=== PATIENT | female | born 2000 | race Caucasian/White ===

== ENCOUNTER 2019-06-08 23:15 | Emergency (ER) | payer OTHER, MEDICAID, SELFPAY ==
[2019-06-08 23:17] VITALS: BP 152/72; PULSE 104; RESP 18; TEMP 36.7; O2SAT 100; BMI 48.0
--- NOTE | 2019-06-08 23:39 | ED.GENADULT ---
HPI - General Adult General Chief complaint: Dental/Oral Stated complaint: thinks strep throat temp 100.1 Time Seen by Provider: 06/08/19 23:26 Source: patient Mode of arrival: Ambulatory Limitations: no limitations History of Present Illness HPI narrative: 19-year-old female here for evaluation of which she thinks is strep throat. States this morning she started to have a slight sore throat. It is both sides with the left being worse than right. No problems breathing. Has not had any cough. No chills. No rash. No sinus congestion. No ear pain. Has not tried anything for symptoms prior to arrival. She has had multiple cases of strep throat in the past in this which she was concerned about now. Related Data Home Medications Medication Instructions Recorded Confirmed albuterol sulfate 3 ml INH PRN #0 05/29/12 Allergies Allergy/AdvReac Type Severity Reaction Status Date / Time No Known Drug Allergies Allergy Verified 06/09/19 00:01 Review of Systems Constitutional Constitutional: Denies chills, Reports fever(s), Denies headache(s) and Denies malaise ENT Ears, Nose, Mouth, and Throat: Denies vertigo, Denies dizziness, Denies headache(s), Denies neck pain, Reports sore throat, Denies throat swelling and Denies tongue swelling Cardiovascular Cardiovascular: Denies dyspnea Respiratory Respiratory: Denies dyspnea Musculoskeletal Musculoskeletal: Denies neck pain Integumentary/Breasts Skin/Breast: Denies lesions and Denies rash Neurologic Neurologic: Denies behavioral changes, Denies vertigo, Denies dizziness and Denies headache(s) Psychiatric Psychiatric: Denies behavioral changes Hematologic/Lymphatic Hematologic/Lymphatic: Denies easy bleeding and Denies easy bruising Allergic/Immunologic Allergic/Immunologic: Denies throat swelling and Denies tongue swelling Patient History Medical History Healthy adult (Acute) Social History Smoking Status: Never smoker Smoking Status: Never smoker Substance Use Type: does not use Exam Initial Vital Signs Initial Vital Signs: Vital Signs Temperature 98.0 F 06/08/19 23:17 Pulse Rate 104 H 06/08/19 23:17 Respiratory Rate 18 06/08/19 23:17 Blood Pressure 152/72 H 06/08/19 23:17 Pulse Oximetry 100 06/08/19 23:17 Const General: cooperative, comfortable, well developed and well groomed Limitations: mental status not altered HENMT Head: normal to inspection Ears: TM's normal bilaterally Nose: external nose normal Face and sinus: normal facial exam Mouth: oral mucosae normal Teeth and gingiva: dentition normal Throat: abnormal tonsil bilaterally exudates; no erythema, no peritonsillar masses and no uvular edema Neck Lymphatic: lymphadenopathy (Right-sided submandibular) Resp Effort & Inspection: normal respiratory effort Skin Lesions: no lesions Rashes: no rashes Neuro General: alert and awake Cognition: normal cognition Speech: speech normal Extrem General: normal to inspection and capillary refill normal Course Orders Ordered: ED Orders 06/08/19 23:36 Throat Culture Stat Discontinued Medications Dexamethasone (Decadron) 12 mg PO NOW ONE Stop: 06/08/19 23:49 Last Admin: 06/09/19 00:00 Dose: 12 mg Documented by: EMY Metoclopramide HCl (Reglan) 10 mg IV NOW ONE Stop: 06/09/19 00:01 Last Admin: 06/09/19 00:09 Dose: Not Given Documented by: EMY Vital Signs Vital signs: Vital Signs - 8 hr 06/08/19 23:17 06/09/19 00:09 Temperature 98.0 F 97.7 F Pulse Rate 104 H 89 Respiratory Rate 18 18 Blood Pressure 152/72 H 122/56 L Pulse Oximetry 100 100 Medical Decision Making Lab Data Lab results reviewed: Yes I reviewed the patient's lab results. Labs: Point of Care Testing Rapid Strep A Negative Point of care testing: Point of Care Testing Rapid Strep A Negative MDM Narrative Medical decision making narrative: Patient's rapid strep was negative however she does have exudates and reported fevers and right-sided lymphadenopathy and no cough. I did talk with her about options to include treating with steroids today another topical sore throat preparations and waiting for a throat culture before treating with antibiotics versus going ahead and presumptively treating her today for strep throat despite the negative rapid strep. We discussed the risks and benefits of both to include potentially delaying treatment of an infection verses receiving antibiotics that she did not need. After this discussion the patient opted to wait until the culture resulted. We did inform her that we would contact her for positive results. She was given return precautions and follow-up instructions. She expressed understanding and agreement. Discharge Plan Departure Patient Disposition: Home Clinical Impression: Pharyngitis Qualifiers: Pharyngitis/tonsillitis etiology: unspecified etiology Qualified Code(s): J02.9 - Acute pharyngitis, unspecified Discharge Date/Time: 06/09/19 00:10 Instructions: Sore Throat Activity Restrictions/Additional Instructions: A throat culture was taken this evening. We will wait until this results before treating with any antibiotics. We will contact you for a positive culture into call in a prescription for antibiotics for you. Until then I do recommend washing your hands frequently and covering your mouth. Return to the emergency department for any new or worsening symptoms Prescriptions: No Action albuterol sulfate 2.5 MG/3 ML solution for nebulization 3 ml INH PRN Qty: 0 RF: 0 Referrals: Elias Vanegas MD [Primary Care Provider] -
[2019-06-09] MEDS: dexAMETHasone 4 MG TABLET 12 MG PO
[2019-06-09 00:09] VITALS: BP 122/56; PULSE 89; RESP 18; TEMP 36.5; O2SAT 100
== END 2019-06-09 00:10 | disposition home or self-care (01) ==
PROVIDERS: Emergency Provider Emergency Medicine; Family Provider Pediatrics; PCP Pediatrics
DX: J02.9 Acute pharyngitis, unspecified (principal)
CPT/HCPCS: 87070; 87147; 87880; 99283

== ENCOUNTER → 2021-12-28 10:25 | Outpatient (CLI) | payer OTHER, MEDICAID, SELFPAY ==
[2021-12-28 12:21] LABS: Add Manual Diff / Slide Review NO; Basophils Absolute Auto 0 /uL (0-100); Basophils Percent Auto 0.4 % (0-2); Eosinophils Absolute Auto 100 /uL (0-450); Eosinophils Percent Auto 0.9 % (2-4); Hemoglobin 13.7 g/dL (12.0-16.0); Lymphocytes Absolute Auto 2400 /uL (1100-4500); Lymphocytes Percent Auto 29.3 % (25-40); Mean Corpuscular HGB Conc 33.4 % (30-36); Mean Corpuscular Hemoglobin 28.1 PG (26-34); Monocytes Absolute Auto 500 /uL (0-900); Monocytes Percent Auto 6.1 % (3-14); Neutrophils Absolute Auto 5300 /uL (1500-7000); Neutrophils Percent Auto 63.3 % (50-75); Platelet Count 432 X10^3/uL (150-400); Red Blood Cell Count 4.88 X10^6/uL (4.0-5.2); Red Cell Distribution Width 13.6 % (11.6-14.8); White Blood Cell Count 8.3 X10^3/uL (4.5-11.0)
[2021-12-28 12:48] LABS: Free T3, Triiodothyronine Free 3.47 pg/mL (2.77-5.27); Free T4, Direct Thyroxine 1.24 ng/dL (0.78-2.19)
[2021-12-28 12:50] LABS: Alanine Aminotransferase 17 IU/L (<35); Albumin 4.2 g/dL (3.5-5.0); Albumin Globulin Ratio 1.1 (1.0-2.8); Alkaline Phosphatase 93 U/L (38-126); Aspartate Aminotransferase 22 IU/L (14-36); BUN Creatinine Ratio 14.3 (6-22); Bilirubin Total 0.5 mg/dL (0.2-1.3); Blood Urea Nitrogen 10 mg/dL (7-17); Calcium 8.8 mg/dL (8.4-10.2); Carbon Dioxide 27 mmol/L (22-32); Chloride 102 mmol/L (98-107); Estimated Glomerular Filt Rate > 60 mL/min (>60); Globulin 3.7 g/dL (1.7-4.1); Glucose 95 mg/dL (70-100); HEMOLYSIS < 15 (0-50); Potassium 3.9 mmol/L (3.4-5.1); Sodium 139 mmol/L (137-145); Total Protein 7.9 g/dL (6.3-8.2)
[2021-12-28 13:01] LABS: Thyroid Stimulating Hormone 2.03 uIU/mL (0.47-4.68)
== END ==
PROVIDERS: Family Provider Pediatrics; PCP Nurse Practitioner; Referring Provider Nurse Practitioner; Visit Provider Nurse Practitioner
DX: Z00.00 Encounter for general adult medical examination without abnormal findings (principal)
CPT/HCPCS: 36415; 80053; 84439; 84443; 84481; 85025

== ENCOUNTER → 2022-03-03 08:23 | Outpatient (CLI) | payer OTHER, MEDICAID, SELFPAY ==
[2022-03-03 10:34] LABS: HCG Quantitative /Beta subunit < 2.4 mIU/mL
== END ==
PROVIDERS: Family Provider Pediatrics; PCP Nurse Practitioner; Referring Provider Nurse Practitioner; Visit Provider Nurse Practitioner
DX: N91.2 Amenorrhea, unspecified (principal)
CPT/HCPCS: 36415; 84702

== ENCOUNTER → 2022-09-22 17:11 | Outpatient (CLI) | payer OTHER, MEDICAID, SELFPAY ==
[2022-09-22 18:31] LABS: HCG Quantitative /Beta subunit 16.4 mIU/mL
== END ==
PROVIDERS: Family Medicine; Family Provider Pediatrics; PCP Nurse Practitioner; Referring Provider Nurse Practitioner; Visit Provider Nurse Practitioner
DX: Z34.90 Encounter for supervision of normal pregnancy, unspecified, unspecified trimester (principal)
CPT/HCPCS: 36415; 84702

== ENCOUNTER 2022-09-25 22:19 | Emergency (ER) | payer OTHER, MEDICAID, SELFPAY ==
[2022-09-25 22:24] VITALS: BP 133/85; PULSE 93; RESP 18; TEMP 36.7; O2SAT 99; BMI 54.9
--- NOTE | 2022-09-25 22:43 | ED_ITS ---
HPI - Anxiety General Chief Complaint: Anxiety Stated Complaint: Lightheaded Time Seen by Provider: 09/25/22 22:31 Source: patient Mode of arrival: Ambulatory History of Present Illness HPI narrative: 22-year-old female nonsmoker without chronic medical history presents with a chief complaint of feeling anxious and a bit lightheaded. She states she frequently feels this way in typically can employed breathing techniques at home which help but she is struggling today. Her dizziness seems to come and go and is not obviously affected by change in position, standing or other obvious provocation. She does state that she found out earlier in the week that she is for the 1st time which she is sure is contributing to her symptoms. Related Data Previous Rx's Medication Instructions Recorded fluconazole 150 mg tablet 150 mg PO Q3D 2 doses #2 tabs 09/15/22 nystatin 100,000 unit/gram topical 1 applic topical BID #30 grams 09/15/22 powder Allergies Allergy/AdvReac Type Severity Reaction Status Date / Time No Known Drug Allergies Allergy Verified 09/15/22 09:08 Review of Systems Review of Systems Narrative: GENERAL: See HPI HEENT: Denies sinus pain, ear pain, sore throat, difficulty swallowing, dizziness. RESPIRATORY: Denies dyspnea, cough, wheezing, hemoptysis, sputum. CARDIOVASCULAR: Denies chest pain, palpitations, orthopnea, edema, GASTROINTESTINAL: See HPI : Denies dysuria, frequency, incontinence, hematuria, urinary retention. MUSCULOSKELETAL: denies weakness, joint pain, or bony pain SKIN: Denies rash, skin lesions, or other NEUROLOGIC: Denies weakness, headache, numbness, change in speech, confusion, seizures, incoordination. PSYCHIATRIC: No concerning psychosocial issues. 12 point review of systems is negative except for those stated above Patient History Medical History Asthma Bipolar disorder (~2021) Depression (~2012) Healthy adult PTSD (post-traumatic stress disorder) (~2012) Family History Father Mental health disorder Mother Mental health disorder Diabetes mellitus Social History Smoking Status: Never smoker Smoking Status: Never smoker Substance Use Type: does not use Exam Narrative Exam Narrative: GENERAL: [22] year old patient appears stated age. Well-developed patient, in mild distress. HEAD: Atraumatic. Normocephalic. EYES: Pupils equal round and reactive. Extraocular motions intact. No scleral icterus. No injection or drainage. ENT: Nose without bleeding, purulent drainage. Throat without erythema, tonsillar hypertrophy or exudate. Airway patent. NECK: Trachea midline. Non tender CARDIOVASCULAR: Regular rate and rhythm without murmurs, gallops, or rubs. RESPIRATORY: Clear to auscultation. Breath sounds equal bilaterally. No wheezes, rales, or rhonchi. GASTROINTESTINAL: Abdomen soft, non-tender, nondistended. EXTREMITIES: No edema or joint tenderness. BACK: Nontender without deformity or crepitance. No flank tenderness. NEURO: AOx3. SKIN: No rash or erythema of visible areas Initial Vital Signs Initial Vital Signs: Vital Signs Temperature 98.1 F 09/25/22 22:24 Pulse Rate 93 H 09/25/22 22:24 Respiratory Rate 18 09/25/22 22:24 Blood Pressure 133/85 09/25/22 22:24 Pulse Oximetry 99 09/25/22 22:24 Oxygen Delivery Method Room Air 09/25/22 22:24 Course Orders Ordered: ED Orders 09/25/22 23:00 ABO RH Type Stat Complete Blood Count AUTO DIFF Stat Comprehensive Metabolic Panel Stat HCG Quantitative /Beta subunit Stat Magnesium Stat TSH [Thyroid Stimulating Hormone] Stat Discontinued Medications Sodium Chloride (Normal Saline 0.9%) 1,000 mls @ 1,000 mls/hr IV BOLUS ONE Stop: 09/26/22 00:35 Last Admin: 09/26/22 00:10 Dose: 1,000 mls/hr Documented By: DUNG Ondansetron HCl (Ondansetron 4 Mg/2 Ml Inj) 4 mg IV NOW ONE Stop: 09/25/22 23:37 Last Admin: 09/26/22 00:09 Dose: 4 mg Documented By: DUNG Vital Signs Vital signs: Vital Signs - 8 hr 09/25/22 22:24 09/26/22 00:02 09/25/22 23:54 Temperature 98.1 F Pulse Rate 93 H 64 Respiratory Rate 18 16 Blood Pressure 133/85 104/52 L Pulse Oximetry 99 98 Oxygen Delivery Method Room Air Room Air 09/25/22 23:55 09/25/22 23:55 09/25/22 23:56 Temperature Pulse Rate 94 H Respiratory Rate Blood Pressure 95/48 L 104/52 L Pulse Oximetry 98 Oxygen Delivery Method 09/25/22 23:56 Temperature Pulse Rate 86 Respiratory Rate Blood Pressure Pulse Oximetry 99 Oxygen Delivery Method MDM - Anxiety Lab Data 09/25/22 23:00 09/25/22 23:00 Labs: Lab Results 09/25/22 09/25/22 09/25/22 Range/Units 23:00 23:00 23:00 WBC 10.4 (4.5-11.0) X10^3/uL RBC 4.58 (4.0-5.2) X10^6/uL Hgb 13.1 (12.0-16.0) g/dL Hct 38.4 (36-46) % MCV 83.9 (80-100) fL MCH 28.6 (26-34) PG MCHC 34.0 (30-36) % RDW 14.4 (11.6-14.8) % Plt Count 405 H (150-400) X10^3/uL Neut % (Auto) 57.5 (50-75) % Lymph % (Auto) 34.0 (25-40) % [place] % (Auto) 6.8 (3-14) % Eos % (Auto) 1.2 L (2-4) % Baso % (Auto) 0.5 (0-2) % Neut # (Auto) 6000 (1889-3666) /uL Lymph # (Auto) 3500 (6562-1673) /uL [place] # (Auto) 700 (0-900) /uL Eos # (Auto) 100 (0-450) /uL Baso # (Auto) 100 (0-100) /uL Sodium 136 L (137-145) mmol/L Potassium 3.7 (3.4-5.1) mmol/L Chloride 104 (98-107) mmol/L Carbon Dioxide 28 (22-32) mmol/L BUN 9 (7-17) mg/dL Creatinine 0.72 (0.52-1.04) mg/dL Estimated GFR > 60 (>60) mL/min BUN/Creatinine Ratio 12.5 (6-22) Glucose 102 H (70-100) mg/dL Calcium 8.6 (8.4-10.2) mg/dL Magnesium 1.9 (1.6-2.3) mg/dL Total Bilirubin 0.5 (0.2-1.3) mg/dL AST 20 (14-36) IU/L ALT 16 (<35) IU/L Alkaline Phosphatase 89 (38-126) U/L Total Protein 7.4 (6.3-8.2) g/dL Albumin 3.8 (3.5-5.0) g/dL Globulin 3.6 (1.7-4.1) g/dL Albumin/Globulin Ratio 1.1 (1.0-2.8) TSH 3.17 (0.47-4.68) uIU/mL HCG, Quant 96.7 mIU/mL Blood Type 09/25/22 Range/Units 23:00 WBC (4.5-11.0) X10^3/uL RBC (4.0-5.2) X10^6/uL Hgb (12.0-16.0) g/dL Hct (36-46) % MCV (80-100) fL MCH (26-34) PG MCHC (30-36) % RDW (11.6-14.8) % Plt Count (150-400) X10^3/uL Neut % (Auto) (50-75) % Lymph % (Auto) (25-40) % [place] % (Auto) (3-14) % Eos % (Auto) (2-4) % Baso % (Auto) (0-2) % Neut # (Auto) (2489-4158) /uL Lymph # (Auto) (3651-5273) /uL [place] # (Auto) (0-900) /uL Eos # (Auto) (0-450) /uL Baso # (Auto) (0-100) /uL Sodium (137-145) mmol/L Potassium (3.4-5.1) mmol/L Chloride (98-107) mmol/L Carbon Dioxide (22-32) mmol/L BUN (7-17) mg/dL Creatinine (0.52-1.04) mg/dL Estimated GFR (>60) mL/min BUN/Creatinine Ratio (6-22) Glucose (70-100) mg/dL Calcium (8.4-10.2) mg/dL Magnesium (1.6-2.3) mg/dL Total Bilirubin (0.2-1.3) mg/dL AST (14-36) IU/L ALT (<35) IU/L Alkaline Phosphatase (38-126) U/L Total Protein (6.3-8.2) g/dL Albumin (3.5-5.0) g/dL Globulin (1.7-4.1) g/dL Albumin/Globulin Ratio (1.0-2.8) TSH (0.47-4.68) uIU/mL HCG, Quant mIU/mL Blood Type O Negative Point of Care Testing Test Results Negative Urine Dip Bedside Urine Glucose Negative Bedside Urine Bilirubin - Negative Bedside Urine Ketone - Negative Urine Specific [place] 1.010 Bedside Urine Occult Blood - Negative Bedside Urine pH 6.0 Bedside Urine Protein - Negative Bedside Urine Urobilinogen - Negative Bedside Urine Nitrite - Negative Bedside Urine Leukocytes - Negative Esterase MDM Narrative Medical decision making narrative: [22] year old patient presents with feeling anxious and a bit lightheaded Multiple etiologies for patient's symptoms considered including, but not limited to: [Dehydration, electrolyte abnormality, anxiety versus other] Prior Charts reviewed in our EMR Primary Historian: patient Labs reviewed and interpreted by myself: No significant lab abnormalities, O negative Patient's symptoms improved over duration of stay with above-stated therapies. Findings and discharge diagnosis discussed with patient/family followed by verb alization of understanding Return precautions discussed with patient/family whom verbalize understanding of diagnosis and plan Discharge Plan Departure Patient Disposition: Home Clinical Impression: Intermittent lightheadedness, Activity Restrictions/Additional Instructions: *You have been diagnosed with [lightheadedness and early .] *What to do: *Please continue to take your regular medications as directed. *Please follow up with your primary care provider in 2-3 days, call for an appointment. Let them know you were seen in the Emergency Department and that we ask that you be seen in follow up. We will electronically transmit a record of today's note if your PCP is in our system *If you do not have a primary care provider please contact the [facility] Resource line at [phone]. They will ask some questions about your medical history and help get you set up with a doctor in the community. *Return to Emergency Department if you should have any new, worsening or concerning symptoms, such as [fever greater than 101 F, shaking chills, wor sening pain, persistent vomiting or other bothersome symptoms] Prescriptions: No Action nystatin 100,000 unit/gram powder 1 applic topical BID Qty: 30 2RF Rx Instructions: Apply to affected area in folds of skin twice daily until resolved fluconazole 150 mg tablet 150 mg PO Q3D Qty: 2 0RF Rx Instructions: Take 1 tab by mouth every 3 days x2 doses for yeast infection in folds of skin Referrals: Lilo Fink ARNP [Primary Care Provider] - Christiane Trevino MD [Physician] - Stand Alone Forms: Patient Portal/API
[2022-09-25 23:14] LABS: Add Manual Diff / Slide Review NO; Basophils Absolute Auto 100 /uL (0-100); Basophils Percent Auto 0.5 % (0-2); Eosinophils Absolute Auto 100 /uL (0-450); Eosinophils Percent Auto 1.2 % (2-4); Hematocrit 38.4 % (36-46); Hemoglobin 13.1 g/dL (12.0-16.0); Lymphocytes Absolute Auto 3500 /uL (1100-4500); Mean Corpuscular Hemoglobin 28.6 PG (26-34); Mean Corpuscular Volume 83.9 fL (80-100); Monocytes Absolute Auto 700 /uL (0-900); Monocytes Percent Auto 6.8 % (3-14); Neutrophils Absolute Auto 6000 /uL (1500-7000); Neutrophils Percent Auto 57.5 % (50-75); Platelet Count 405 X10^3/uL (150-400); Red Blood Cell Count 4.58 X10^6/uL (4.0-5.2); Red Cell Distribution Width 14.4 % (11.6-14.8); White Blood Cell Count 10.4 X10^3/uL (4.5-11.0)
[2022-09-25 23:25] LABS: Alanine Aminotransferase 16 IU/L (<35); Albumin 3.8 g/dL (3.5-5.0); Albumin Globulin Ratio 1.1 (1.0-2.8); Alkaline Phosphatase 89 U/L (38-126); Aspartate Aminotransferase 20 IU/L (14-36); BUN Creatinine Ratio 12.5 (6-22); Bilirubin Total 0.5 mg/dL (0.2-1.3); Blood Urea Nitrogen 9 mg/dL (7-17); Calcium 8.6 mg/dL (8.4-10.2); Carbon Dioxide 28 mmol/L (22-32); Chloride 104 mmol/L (98-107); Estimated Glomerular Filt Rate > 60 mL/min (>60); Globulin 3.6 g/dL (1.7-4.1); Glucose 102 mg/dL (70-100); HEMOLYSIS < 15 (0-50); Magnesium 1.9 mg/dL (1.6-2.3); Potassium 3.7 mmol/L (3.4-5.1); Sodium 136 mmol/L (137-145); Total Protein 7.4 g/dL (6.3-8.2)
[2022-09-25 23:42] LABS: HCG Quantitative /Beta subunit 96.7 mIU/mL
[2022-09-25 23:54] VITALS: O2SAT 98
[2022-09-25 23:55] VITALS: BP 95/48; PULSE 94; O2SAT 98
[2022-09-25 23:56] VITALS: BP 104/52; PULSE 86; O2SAT 99
[2022-09-26 00:02] VITALS: BP 104/52; PULSE 64; RESP 16
[2022-09-26] MEDS: ONDANSETRON 4 MG/2 ML INJ IV (00:09)
[2022-09-26] MEDS: SODIUM CHLORIDE 0.9% 1,000 ML 1000 ML IV (00:10)
[2022-09-26 00:13] LABS: Thyroid Stimulating Hormone 3.17 uIU/mL (0.47-4.68)
== END 2022-09-26 00:52 | disposition home or self-care (01) ==
PROVIDERS: Emergency Provider Emergency Medicine; Family Provider Pediatrics; PCP Nurse Practitioner
DX: R42 Dizziness and giddiness (principal); Z3A.01 Less than 8 weeks gestation of pregnancy
CPT/HCPCS: 36415; 80053; 81003; 81025; 83735; 84443; 84702; 85025; 86900; 86901; 96361; 96374; 99284; J2405

== ENCOUNTER → 2022-10-03 15:32 | Outpatient (CLI) | payer OTHER, MEDICAID, SELFPAY ==
[2022-10-03 17:26] LABS: HCG Quantitative /Beta subunit 2917.9 mIU/mL
== END ==
PROVIDERS: Family Provider Pediatrics; PCP Nurse Practitioner; Referring Provider Family Medicine; Visit Provider Family Medicine
DX: Z32.01 Encounter for pregnancy test, result positive (principal)
CPT/HCPCS: 36415; 84702

== ENCOUNTER → 2022-11-09 12:44 | Outpatient (CLI) | payer OTHER, MEDICAID, SELFPAY ==
[2022-11-09 20:47] LABS: Appearance Urine UA CLEAR; Bilirubin Urine UA NEGATIVE (NEGATIVE); Color Urine UA YELLOW; Glucose Urine UA NEGATIVE (Negative); Ketones Urine UA NEGATIVE (NEGATIVE); Leukocyte Esterase Urine UA 1+ (NEGATIVE); Nitrite Urine UA NEGATIVE (Negative); Occult Blood Urine UA NEGATIVE (Negative); Protein Urine UA NEGATIVE (Negative); Specific Gravity Urine UA <=1.005 (1.000-1.035); Urobilinogen Urine UA 0.2 E.U./dL (0.2)
[2022-11-09 21:12] LABS: Bacteria Urine Occasional (0-1); RBC Urine 0-1/HPF (0-5/HPF); Squamous Epithelial Cell Urine 5-10 /HPF (0-5/HPF); Transitional Epi Cells Urine 1-5/HPF (0-5/HPF); WBC Urine 5-10/HPF (0-5/HPF); pH Urine UA 6.5 (4.5-8.0)
== END ==
PROVIDERS: Family Provider Pediatrics; PCP Nurse Practitioner; Visit Provider Family Medicine
DX: Z34.81 Encounter for supervision of other normal pregnancy, first trimester (principal)
CPT/HCPCS: 81003; 81015; 87086

== ENCOUNTER → 2022-11-09 13:11 | Outpatient (CLI) | payer OTHER, MEDICAID, SELFPAY ==
[2022-11-09 14:23] LABS: Add Manual Diff / Slide Review NO; Basophils Absolute Auto 0 /uL (0-100); Basophils Percent Auto 0.2 % (0-2); Eosinophils Absolute Auto 0 /uL (0-450); Eosinophils Percent Auto 0.3 % (2-4); Hematocrit 37.4 % (36-46); Hemoglobin 12.8 g/dL (12.0-16.0); Lymphocytes Absolute Auto 1900 /uL (1100-4500); Lymphocytes Percent Auto 20.9 % (25-40); Mean Corpuscular HGB Conc 34.2 % (30-36); Mean Corpuscular Hemoglobin 28.8 PG (26-34); Mean Corpuscular Volume 84.3 fL (80-100); Monocytes Absolute Auto 500 /uL (0-900); Monocytes Percent Auto 5.8 % (3-14); Neutrophils Absolute Auto 6600 /uL (1500-7000); Neutrophils Percent Auto 72.8 % (50-75); Platelet Count 373 X10^3/uL (150-400); Red Blood Cell Count 4.44 X10^6/uL (4.0-5.2); Red Cell Distribution Width 14.1 % (11.6-14.8)
[2022-11-10 03:45] LABS: RPR Screen Non Reactive (Non Reactive)
[2022-11-10 15:55] LABS: Hepatitis B Surface Antigen NEGATIVE s/c (NEGATIVE); Rubella Antibody IgG 18.4 IU/mL (>15)
[2022-11-10 16:19] LABS: HIV 1 & 2 Ab/Ag 4th Gen Combo NEGATIVE (NEGATIVE); Hep C Virus Ab w/Reflex Quant NEGATIVE s/c (NEGATIVE)
[2022-11-11 09:42] LABS: Varicella IgG Antibody 206 index (Immune >165)
== END ==
PROVIDERS: Family Provider Pediatrics; PCP Nurse Practitioner; Referring Provider Family Medicine; Visit Provider Family Medicine
DX: Z34.81 Encounter for supervision of other normal pregnancy, first trimester (principal)
CPT/HCPCS: 36415; 80055; 81003; 81015; 86787; 86803; 86850; 86900; 86901; 87086; 87389

== ENCOUNTER 2022-11-25 23:33 | Emergency (ER) | payer OTHER, MEDICAID, SELFPAY ==
[2022-11-25 23:37] VITALS: BP 145/93; PULSE 134; RESP 20; TEMP 37.1; O2SAT 97; BMI 52.8
--- NOTE | 2022-11-25 23:49 | ED_ITS ---
HPI - General Adult General Chief complaint: OB/Uterine Contractions Stated complaint: POSSIBLE Miscarriage Time Seen by Provider: 11/25/22 23:37 Source: patient Mode of arrival: Ambulatory Limitations: no limitations History of Present Illness HPI narrative: Patient is a at approximately 13 weeks EGA who is here for evaluation of vaginal bleeding. She states the symptoms started this evening. She did pass quite a bit of clots and potentially some tissue. No vomiting. No fevers. No trauma. She is Rh negative. She has had her initial OB appointment. No urinary symptoms. Related Data Home Medications Medication Instructions Recorded Confirmed [id number] 400 mcg-om3 35 mg-dha 25 tab PO 10/06/22 11/09/22 mg-epa 5 mg-fish oil chewable tablet Previous Rx's Medication Instructions Recorded ondansetron 4 mg disintegrating 4 mg PO Q8H PRN nausea and 11/23/22 tablet vomiting #20 tabs Allergies Allergy/AdvReac Type Severity Reaction Status Date / Time No Known Drug Allergies Allergy Verified 11/09/22 12:03 Review of Systems Constitutional Constitutional: Reports system reviewed and no additional complaints, except as documented Gastrointestinal Gastrointestinal: Reports system reviewed and no additional complaints, except as documented Genitourinary Genitourinary: Reports system reviewed and no additional complaints, except as documented Hematologic/Lymphatic On Anticoagulants: No Patient History Medical History PTSD (post-traumatic stress disorder) (~2012) Depression (~2012) Bipolar disorder (~2021) Asthma Healthy adult Surgical History (Updated 10/06/22 @ 13:13 by Lissy Bishop RN) No pertinent past surgical history Family History (Updated 10/06/22 @ 13:17 by Lissy Bishop RN) Father Depression Anxiety PTSD (post-traumatic stress disorder) Mother Mental health disorder Diabetes mellitus Anxiety Depression Bipolar disorder PIH ( induced hypertension) Grandmother Breast cancer Social History marital status: number of children: 0 household members: spouse and family (grandfather) lives independently: Yes caregiver/support person: No housing: house (manufactured home) pets and animals: Yes (grandfather's cat, she doesn't deal w/ litter box) education level: college (student) 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) special sylvain needs: No travel history: recent seatbelt use: always water heater temp set < 120 deg: Yes working smoke detector in home: Yes fire extinguisher in home: Yes carbon monox detector in home: Yes firearms in home: Yes firearms unloaded and locked: Yes do you feel safe at home: Yes (answered w/ present ) Smoking Status: Never smoker second hand exposure: No alcohol intake: former (occasionally when not ) substance use type: does not use during the past year weight has: remained stable well-balanced diet: rarely or never daily servings fruits/ve-1 caffeine: Yes (aware of 200mg limit) Type(s) of exercise: walking duration: 15-30 minutes/day Smoking Status: Never smoker Substance Use Type: does not use Exam Initial Vital Signs Initial Vital Signs: Vital Signs Temperature 98.7 F 11/25/22 23:37 Pulse Rate 134 H 11/25/22 23:37 Respiratory Rate 20 11/25/22 23:37 Blood Pressure 145/93 H 11/25/22 23:37 Pulse Oximetry 97 11/25/22 23:37 Oxygen Delivery Method Room Air 11/25/22 23:37 HENMT Head: normal to inspection and normocephalic Resp Effort & Inspection: normal respiratory effort Cardio Rate: regular rate GI Inspection: non-distended Skin General: no rashes or lesions noted Neuro General: patient alert, patient awake and moves all extremities Extrem General: capillary refill normal Course Orders Ordered: ED Orders 11/25/22 23:45 Basic Metabolic Panel Stat Complete Blood Count AUTO DIFF Stat HCG Quantitative /Beta subunit Stat 11/26/22 00:00 OB <= 14 weeks fetus Stat Discontinued Medications Rho Immune Globulin (Rho(D) Immune Globulin 1,500 Unit Syringe) 1,500 unit IM NOW ONE Stop: 11/25/22 23:48 Last Admin: 11/26/22 00:49 Dose: 1,500 unit Documented By: TRINY Vital Signs Vital signs: Vital Signs - 8 hr 11/25/22 23:37 11/26/22 00:24 Temperature 98.7 F Pulse Rate 134 H 89 Respiratory Rate 20 16 Blood Pressure 145/93 H Pulse Oximetry 97 98 Oxygen Delivery Method Room Air Room Air Medical Decision Making Medical Records Medical records reviewed: Yes I reviewed the patient's medical records. Lab Data Lab results reviewed: Yes I reviewed the patient's lab results. 11/25/22 23:45 11/25/22 23:45 Labs: Lab Results 11/25/22 Range/Units 23:45 WBC 11.2 H (4.5-11.0) X10^3/uL RBC 4.50 (4.0-5.2) X10^6/uL Hgb 13.1 (12.0-16.0) g/dL Hct 38.2 (36-46) % MCV 84.9 (80-100) fL MCH 29.1 (26-34) PG MCHC 34.2 (30-36) % RDW 14.5 (11.6-14.8) % Plt Count 358 (150-400) X10^3/uL Neut % (Auto) 60.9 (50-75) % Lymph % (Auto) 31.8 (25-40) % [place] % (Auto) 6.2 (3-14) % Eos % (Auto) 0.9 L (2-4) % Baso % (Auto) 0.2 (0-2) % Neut # (Auto) 6800 (3734-4342) /uL Lymph # (Auto) 3500 (7965-2136) /uL [place] # (Auto) 700 (0-900) /uL Eos # (Auto) 100 (0-450) /uL Baso # (Auto) 0 (0-100) /uL Sodium 134 L (137-145) mmol/L Potassium 3.6 (3.4-5.1) mmol/L Chloride 104 (98-107) mmol/L Carbon Dioxide 23 (22-32) mmol/L BUN 4 L (7-17) mg/dL Creatinine 0.51 L (0.52-1.04) mg/dL Estimated GFR > 60 (>60) mL/min BUN/Creatinine Ratio 7.8 (6-22) Glucose 108 H (70-100) mg/dL Calcium 9.6 (8.4-10.2) mg/dL HCG, Quant 87946 mIU/mL Imaging Data US - OB: Radiologist's Impression: PROCEDURE: US OB <= 14 WEEKS FETUS INDICATIONS: BLEEDING OUTSIDE/PRIOR DATING DATA: Last menstrual period (LMP): 08/28/2022 LMP-based estimated date of delivery (GURPREET): 06/04/2023 First dating scan (date and location): 11/09/2022 Estimated date of delivery (GURPREET) from first dating scan: 06/04/2023 TECHNIQUE: Real-time scanning was performed of the fetus and maternal pelvic organs, with image documentation. COMPARISON: None. FINDINGS: Embryo: Single intrauterine gestational sac is seen with fetus noted. [place]- rump length measures 7.1 cm. Estimated gestational age is 13 weeks, 2 days. Heart rate: 157 beats per minute. No perigestational hematoma is seen. Maternal organs: Ovaries are not well seen on this study. No gross adnexal mass. IMPRESSION: 1. Single live intrauterine gestation with fetus seen. heart rate is 157 beats per minute. Normal growth. 2. No evidence of perigestational hemorrhage. We strive to produce accurate, complete, and clear reports of imaging services. To assist us in improving patient care, this report was composed using standard report templates and voice recognition software. Therefore, it may contain abnormal punctuation, insertions and/or omissions. Occasional wrong-word or sound-alike substitutions may occur. Though we review the report and make efforts to correct it, we do recommend that the report be read carefully in proper context to recognize any text inaccuracies. MDM Narrative Medical decision making narrative: Patient is Rh negative so she was given RhoGAM. Vital signs initially were tachycardic with this improved without specific intervention here in the ER. Patient has not been hypotensive. Her H&H is unremarkable. Ultrasound shows single live intrauterine . I did discuss all this with her. She has an appointment scheduled with her OB provider in just over 1 week. We discussed specific return precautions. Advised she contact her OB provider on Monday for follow-up. She expressed understanding and agreement with plan. Discharge Plan Departure Patient Disposition: Home Clinical Impression: Threatened miscarriage Instructions: Threatened Miscarriage Activity Restrictions/Additional Instructions: I recommend that on Monday you contact your primary OB provider for follow-up. Continue to take your vitamins. Return to the emergency department for new or worsening symptoms. Prescriptions: No Action ondansetron 4 mg tablet,disintegrating 4 mg PO Q8H PRN (Reason: nausea and vomiting) Qty: 20 0RF Rx Instructions: Take one tab every 8 hours as needed only for nausea and vomiting [id number] oil 400 mcg-35 mg -25 mg-5 mg tablet,chewable PO Referrals: Lilo Fink ARNP [Primary Care Provider] - Stand Alone Forms: Patient Portal/API
[2022-11-25 23:58] LABS: Add Manual Diff / Slide Review NO; Basophils Absolute Auto 0 /uL (0-100); Basophils Percent Auto 0.2 % (0-2); Eosinophils Absolute Auto 100 /uL (0-450); Eosinophils Percent Auto 0.9 % (2-4); Hematocrit 38.2 % (36-46); Hemoglobin 13.1 g/dL (12.0-16.0); Lymphocytes Absolute Auto 3500 /uL (1100-4500); Lymphocytes Percent Auto 31.8 % (25-40); Mean Corpuscular HGB Conc 34.2 % (30-36); Mean Corpuscular Hemoglobin 29.1 PG (26-34); Mean Corpuscular Volume 84.9 fL (80-100); Monocytes Absolute Auto 700 /uL (0-900); Monocytes Percent Auto 6.2 % (3-14); Neutrophils Absolute Auto 6800 /uL (1500-7000); Neutrophils Percent Auto 60.9 % (50-75); Platelet Count 358 X10^3/uL (150-400); Red Cell Distribution Width 14.5 % (11.6-14.8); White Blood Cell Count 11.2 X10^3/uL (4.5-11.0)
--- NOTE | 2022-11-26 | DI.US.S_ITS ---
PROCEDURE: US OB <= 14 WEEKS FETUS INDICATIONS: BLEEDING OUTSIDE/PRIOR DATING DATA: Last menstrual period (LMP): 08/28/2022 LMP-based estimated date of delivery (GURPREET): 06/04/2023 First dating scan (date and location): 11/09/2022 Estimated date of delivery (GURPREET) from first dating scan: 06/04/2023 TECHNIQUE: Real-time scanning was performed of the fetus and maternal pelvic organs, with image documentation. COMPARISON: None. FINDINGS: Embryo: Single intrauterine gestational sac is seen with fetus noted. [place]-rump length measures 7.1 cm. Estimated gestational age is 13 weeks, 2 days. Heart rate: 157 beats per minute. No perigestational hematoma is seen. Maternal organs: Ovaries are not well seen on this study. No gross adnexal mass. IMPRESSION: 1. Single live intrauterine gestation with fetus seen. heart rate is 157 beats per minute. Normal growth. 2. No evidence of perigestational hemorrhage. We strive to produce accurate, complete, and clear reports of imaging services. To assist us in improving patient care, this report was composed using standard report templates and voice recognition software. Therefore, it may contain abnormal punctuation, insertions and/or omissions. Occasional wrong-word or sound-alike substitutions may occur. Though we review the report and make efforts to correct it, we do recommend that the report be read carefully in proper context to recognize any text inaccuracies. Dictated by: Milton Peace M.D. on 11/26/2022 at 0:51 Approved by: Milton Peace M.D. on 11/26/2022 at 0:53
[2022-11-26 00:23] VITALS: PULSE 68; O2SAT 98
[2022-11-26 00:24] VITALS: PULSE 89; RESP 16; O2SAT 98
[2022-11-26 00:27] LABS: BUN Creatinine Ratio 7.8 (6-22); Blood Urea Nitrogen 4 mg/dL (7-17); Calcium 9.6 mg/dL (8.4-10.2); Carbon Dioxide 23 mmol/L (22-32); Chloride 104 mmol/L (98-107); Estimated Glomerular Filt Rate > 60 mL/min (>60); Glucose 108 mg/dL (70-100); HEMOLYSIS < 15 (0-50); Potassium 3.6 mmol/L (3.4-5.1); Sodium 134 mmol/L (137-145)
[2022-11-26 00:30] VITALS: PULSE 75; O2SAT 100
[2022-11-26 00:46] LABS: HCG Quantitative /Beta subunit 86797 mIU/mL
[2022-11-26] MEDS: RHO(D) IMMUNE GLOBULIN 1,500 UNIT SYRINGE 1500 UNIT IM (00:49)
[2022-11-26 01:06] VITALS: BP 151/65; PULSE 91; O2SAT 98
== END 2022-11-26 01:23 | disposition home or self-care (01) ==
PROVIDERS: Emergency Provider Emergency Medicine; Family Provider Pediatrics; PCP Nurse Practitioner
DX: O20.0 Threatened abortion (principal); Z3A.13 13 weeks gestation of pregnancy
CPT/HCPCS: 36415; 76801; 80048; 84702; 85025; 96372; 99283; 99284; J2790

== ENCOUNTER 2022-11-30 00:20 | Emergency (ER) | payer OTHER, MEDICAID, SELFPAY ==
--- NOTE | 2022-11-30 00:24 | ED_ITS ---
HPI - General Adult General Chief complaint: Vaginal Bleeding Stated complaint: heavy vaginal bleeding passed 2 blood clots Time Seen by Provider: 11/30/22 00:24 History of Present Illness HPI narrative: 22-year-old female is a at about 13 weeks and presents for the 2nd time in the past few days with a chief complaint of lower pelvic and low back cramping and vaginal bleeding. She was seen and evaluated here on Monday and had the passage of a few large clots and possibly some tissue. She had an extensive and thorough evaluation and was found to have stable labs, reassuring ultrasound, RhoGAM was administered and appropriate discharge given. She was in her normal state of health until this evening when she started having some cramping and passed to clots prior to her arrival. Per her return instructions she is here for evaluation. She denies any dizziness, weakness or lightheadedness. She has no chest pain or shortness of breath. She denies any fever or chills. Related Data Home Medications Medication Instructions Recorded Confirmed [id number] 400 mcg-om3 35 mg-dha 25 tab PO 10/06/22 11/09/22 mg-epa 5 mg-fish oil chewable tablet Previous Rx's Medication Instructions Recorded ondansetron 4 mg disintegrating 4 mg PO Q8H PRN nausea and 11/23/22 tablet vomiting #20 tabs Allergies Allergy/AdvReac Type Severity Reaction Status Date / Time No Known Drug Allergies Allergy Verified 11/09/22 12:03 Review of Systems Review of Systems Narrative: GENERAL: Denies chills, fatigue, malaise, fever, sweats. HEENT: Denies sinus pain, ear pain, sore throat, difficulty swallowing, dizziness. RESPIRATORY: Denies dyspnea, cough, wheezing, hemoptysis, sputum. CARDIOVASCULAR: Denies chest pain, palpitations, orthopnea, edema, GASTROINTESTINAL: Denies nausea, vomiting, abdominal pain, diarrhea, constipation, melena. : See HPI MUSCULOSKELETAL: denies weakness, joint pain, or bony pain SKIN: Denies rash, skin lesions, or other NEUROLOGIC: Denies weakness, headache, numbness, change in speech, confusion, seizures, incoordination. PSYCHIATRIC: No concerning psychosocial issues. 12 point review of systems is negative except for those stated above Patient History Medical History PTSD (post-traumatic stress disorder) (~2012) Depression (~2012) Bipolar disorder (~2021) Asthma Healthy adult Surgical History No pertinent past surgical history Family History Father Depression Anxiety PTSD (post-traumatic stress disorder) Mother Mental health disorder Diabetes mellitus Anxiety Depression Bipolar disorder PIH ( induced hypertension) Grandmother Breast cancer Social History marital status: number of children: 0 household members: spouse and family (grandfather) lives independently: Yes caregiver/support person: No housing: house (manufactured home) pets and animals: Yes (grandfather's cat, she doesn't deal w/ litter box) education level: college (student) 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) special sylvain needs: No travel history: recent seatbelt use: always water heater temp set < 120 deg: Yes working smoke detector in home: Yes fire extinguisher in home: Yes carbon monox detector in home: Yes firearms in home: Yes firearms unloaded and locked: Yes do you feel safe at home: Yes (answered w/ present ) Smoking Status: Never smoker second hand exposure: No alcohol intake: former (occasionally when not ) substance use type: does not use during the past year weight has: remained stable well-balanced diet: rarely or never daily servings fruits/ve-1 caffeine: Yes (aware of 200mg limit) Type(s) of exercise: walking duration: 15-30 minutes/day Smoking Status: Never smoker Substance Use Type: does not use Exam Narrative Exam Narrative: GENERAL: [22] year old patient appears stated age. Well-developed patient, in mild distress. HEAD: Atraumatic. Normocephalic. EYES: Pupils equal round and reactive. Extraocular motions intact. No scleral icterus. No injection or drainage. ENT: Nose without bleeding, purulent drainage. Throat without erythema, tonsillar hypertrophy or exudate. Airway patent. NECK: Trachea midline. Non tender CARDIOVASCULAR: Regular rate and rhythm without murmurs, gallops, or rubs. RESPIRATORY: Clear to auscultation. Breath sounds equal bilaterally. No wheezes, rales, or rhonchi. GASTROINTESTINAL: Abdomen soft, non-tender, nondistended. EXTREMITIES: No edema or joint tenderness. BACK: Nontender without deformity or crepitance. No flank tenderness. NEURO: AOx3. SKIN: No rash or erythema of visible areas Initial Vital Signs Initial Vital Signs: Vital Signs Pulse Rate 103 H 11/30/22 00:30 Respiratory Rate 18 11/30/22 00:30 Blood Pressure 158/88 H 11/30/22 00:30 Pulse Oximetry 98 11/30/22 00:30 Oxygen Delivery Method Room Air 11/30/22 00:30 Course Orders Ordered: ED Orders 11/30/22 00:29 US OB <= 14 weeks fetus Stat 11/30/22 01:20 Basic Metabolic Panel Stat Complete Blood Count AUTO DIFF Stat HCG Quantitative /Beta subunit Stat Type and Screen Stat Urine Microscopic Stat Vital Signs Vital signs: Vital Signs - 8 hr 11/30/22 00:30 11/30/22 00:42 11/30/22 01:29 Temperature 99.1 F Pulse Rate 103 H 68 Respiratory Rate 18 18 Blood Pressure 158/88 H 125/58 L Pulse Oximetry 98 98 Oxygen Delivery Method Room Air Room Air 11/30/22 03:11 Temperature Pulse Rate 84 Respiratory Rate 16 Blood Pressure 125/58 L Pulse Oximetry 97 Oxygen Delivery Method Medical Decision Making Lab Data 11/30/22 01:20 11/30/22 01:20 Labs: Lab Results 11/30/22 Range/Units 01:20 WBC 11.2 H (4.5-11.0) X10^3/uL RBC 4.27 (4.0-5.2) X10^6/uL Hgb 12.5 (12.0-16.0) g/dL Hct 36.6 (36-46) % MCV 85.8 (80-100) fL MCH 29.3 (26-34) PG MCHC 34.2 (30-36) % RDW 14.4 (11.6-14.8) % Plt Count 349 (150-400) X10^3/uL Neut % (Auto) 69.6 (50-75) % Lymph % (Auto) 23.0 L (25-40) % [place] % (Auto) 6.3 (3-14) % Eos % (Auto) 0.8 L (2-4) % Baso % (Auto) 0.3 (0-2) % Neut # (Auto) 7800 H (2266-4219) /uL Lymph # (Auto) 2600 (3000-4117) /uL [place] # (Auto) 700 (0-900) /uL Eos # (Auto) 100 (0-450) /uL Baso # (Auto) 0 (0-100) /uL Sodium 134 L (137-145) mmol/L Potassium 3.5 (3.4-5.1) mmol/L Chloride 102 (98-107) mmol/L Carbon Dioxide 23 (22-32) mmol/L BUN 6 L (7-17) mg/dL Creatinine 0.52 (0.52-1.04) mg/dL Estimated GFR > 60 (>60) mL/min BUN/Creatinine Ratio 11.5 (6-22) Glucose 103 H (70-100) mg/dL Calcium 9.1 (8.4-10.2) mg/dL HCG, Quant 43482 mIU/mL Urine RBC 30-100/hpf H (0-5/HPF) Urine WBC 1-5/hpf (0-5/HPF) Ur Squamous Epith Cells 1-5 /hpf (0-5/HPF) Urine Bacteria None seen (None) Ur Culture Indicated? Cult not indicated Blood Type O Negative Antibody Screen Positive Antibody Identification Anti-D Urine Dip Bedside Urine Glucose Negative Bedside Urine Bilirubin - Negative Bedside Urine Ketone ++ 40 Urine Specific [place] 1.015 Bedside Urine Occult Blood +++ Bedside Urine pH 6 Bedside Urine Protein ++ 100 Bedside Urine Urobilinogen - Negative Bedside Urine Nitrite - Negative Bedside Urine Leukocytes - Negative Esterase Point of care testing: Urine Dip Bedside Urine Glucose Negative Bedside Urine Bilirubin - Negative Bedside Urine Ketone ++ 40 Urine Specific [place] 1.015 Bedside Urine Occult Blood +++ Bedside Urine pH 6 Bedside Urine Protein ++ 100 Bedside Urine Urobilinogen - Negative Bedside Urine Nitrite - Negative Bedside Urine Leukocytes - Negative Esterase MDM Narrative Medical decision making narrative: [22] year old patient presents with recurrence of vaginal bleeding Multiple etiologies for patient's symptoms considered including, but not limited to: [Miscarriage versus previa versus other] Prior Charts reviewed in our EMR Primary Historian: patient Labs reviewed and interpreted by myself: HCG has dropped from 82,277 1000 Imaging reviewed: Interval development of 4.7 cm. Gestational hemorrhage, intrauterine redemonstrated Consultations: Discussed with Dr. Whitlock (Ob). Recommends close follow-up with primary OB, pelvic rest, return for heavy bleeding, increasing pain, fever Patient with repeat visit for recurrence of cramping and bleeding. There has been some concerning change including the development of a perigestational hemorrhage on ultrasound any drop in hCG raising the concern for threatened . Discussed importance of pelvic rest, return precautions and close follow-up with patient Findings and discharge diagnosis discussed with patient/family followed by verbalization of understanding Return precautions discussed with patient/family whom verbalize understanding of diagnosis and plan Discharge Plan Departure Patient Disposition: Home Clinical Impression: Hemorrhage affecting , Threatened miscarriage Instructions: DI for Vaginal Bleeding During Activity Restrictions/Additional Instructions: *You have been diagnosed with [bleeding during ,. Gestational hemorrhage measuring 4.7 cm. *What to do: *Please continue to take your regular medications as directed. [ ] New medication prescriptions sent to your pharmacy: [ ] [ ] New medication written as a paper prescription [ ] No new medications given *Please follow up with Dr. Morillo in the next few days, call tomorrow morning for an appointment. Let them know you were seen in the Emergency Department and that we ask that you be seen in follow up. We will electronically transmit a record of today's note if your PCP is in our system * certainly until follow-up with Dr. Morillo you must engage in pelvic rest. This means no intercourse, nothing inserted vaginally, no vigorous activity *Return to Emergency Department if you should have any new, worsening or concerning symptoms, such as [fever greater than 101 F, shaking chills, worsening pain, persistent vomiting or other bothersome symptoms] Prescriptions: No Action ondansetron 4 mg tablet,disintegrating 4 mg PO Q8H PRN (Reason: nausea and vomiting) Qty: 20 0RF Rx Instructions: Take one tab every 8 hours as needed only for nausea and vomiting [id number] oil 400 mcg-35 mg -25 mg-5 mg tablet,chewable PO Referrals: Lilo Fink ARNP [Primary Care Provider] - Lakeisha Morillo MD [Physician] - Stand Alone Forms: Patient Portal/API, Work Release Note
--- NOTE | 2022-11-30 00:29 | DI.US.S_ITS ---
PROCEDURE: US OB <= 14 WEEKS FETUS INDICATIONS: pain, bleeding, 13 weeks OUTSIDE/PRIOR DATING DATA: Last menstrual period (LMP): 08/28/2022. LMP-based estimated date of delivery (GURPREET): 06/04/2023. First dating scan (date and location): 11/09/2022. Estimated date of delivery (GURPREET) from first dating scan: 06/04/2023. TECHNIQUE: Real-time scanning was performed of the fetus and maternal pelvic organs, with image documentation. COMPARISON: [facility], , OB <= 14 WEEKS FETUS, 11/26/2022, 0:31. FINDINGS: Fetus: Present with composite gestational age of 14 weeks 0 days by biometry Heart rate: 160 beats per minute Perigestational hemorrhage present measuring 4.7 x 0.7 x 3.9 cm, appears less than 50% circumference of the gestational sac. Maternal organs: Ovaries not visualized likely due to bowel gas. IMPRESSION: Single living intrauterine . Perigestational hemorrhage present measuring 4.7 cm. We strive to produce accurate, complete, and clear reports of imaging services. To assist us in improving patient care, this report was composed using standard report templates and voice recognition software. Therefore, it may contain abnormal punctuation, insertions and/or omissions. Occasional wrong-word or sound-alike substitutions may occur. Though we review the report and make efforts to correct it, we do recommend that the report be read carefully in proper context to recognize any text inaccuracies. Dictated by: Nuno Vega M.D. on 11/30/2022 at 2:09 Approved by: Nuno Vega M.D. on 11/30/2022 at 2:12
[2022-11-30 00:30] VITALS: BP 158/88; PULSE 103; RESP 18; O2SAT 98; BMI 53.5
[2022-11-30 00:42] VITALS: TEMP 37.3
--- NOTE | 2022-11-30 00:45 | PC.NURSE ---
pt is but thinks she might have had a miscarriage earlier this year just because of the symptoms but she did not have a confirmed . pt was here on Fri for same symptoms, the cramping this time is not as bad but is located in the lower back versus the left side, pt has not had as much vaginal bleeding this time as she has only passed 2 clots and is on her first pad
[2022-11-30 01:29] VITALS: BP 125/58; PULSE 68; RESP 18; O2SAT 98
[2022-11-30 01:34] LABS: Bacteria Urine None Seen; Culture Indicated Urine Cult Not Indicated; RBC Urine 30-100/HPF (0-5/HPF); Squamous Epithelial Cell Urine 1-5 /HPF (0-5/HPF); WBC Urine 1-5/HPF (0-5/HPF)
[2022-11-30 01:39] LABS: Add Manual Diff / Slide Review NO; Basophils Absolute Auto 0 /uL (0-100); Basophils Percent Auto 0.3 % (0-2); Eosinophils Absolute Auto 100 /uL (0-450); Eosinophils Percent Auto 0.8 % (2-4); Hematocrit 36.6 % (36-46); Hemoglobin 12.5 g/dL (12.0-16.0); Lymphocytes Absolute Auto 2600 /uL (1100-4500); Mean Corpuscular HGB Conc 34.2 % (30-36); Mean Corpuscular Hemoglobin 29.3 PG (26-34); Mean Corpuscular Volume 85.8 fL (80-100); Monocytes Absolute Auto 700 /uL (0-900); Monocytes Percent Auto 6.3 % (3-14); Neutrophils Absolute Auto 7800 /uL (1500-7000); Neutrophils Percent Auto 69.6 % (50-75); Platelet Count 349 X10^3/uL (150-400); Red Blood Cell Count 4.27 X10^6/uL (4.0-5.2); Red Cell Distribution Width 14.4 % (11.6-14.8); White Blood Cell Count 11.2 X10^3/uL (4.5-11.0)
[2022-11-30 01:45] LABS: BUN Creatinine Ratio 11.5 (6-22); Blood Urea Nitrogen 6 mg/dL (7-17); Calcium 9.1 mg/dL (8.4-10.2); Carbon Dioxide 23 mmol/L (22-32); Estimated Glomerular Filt Rate > 60 mL/min (>60); Glucose 103 mg/dL (70-100); HEMOLYSIS < 15 (0-50)
[2022-11-30 01:52] LABS: Chloride 102 mmol/L (98-107); Potassium 3.5 mmol/L (3.4-5.1); Sodium 134 mmol/L (137-145)
[2022-11-30 02:27] LABS: HCG Quantitative /Beta subunit 77294 mIU/mL
[2022-11-30 03:11] VITALS: BP 125/58; PULSE 84; RESP 16; O2SAT 97
== END 2022-11-30 03:13 | disposition home or self-care (01) ==
PROVIDERS: Emergency Provider Emergency Medicine; Family Provider Pediatrics; PCP Nurse Practitioner
DX: O20.0 Threatened abortion (principal); Z3A.13 13 weeks gestation of pregnancy
CPT/HCPCS: 76801; 80048; 81003; 81015; 84702; 85025; 86850; 86870; 86900; 86901; 99282; 99284

== ENCOUNTER → 2022-12-09 12:24 | Outpatient (CLI) | payer OTHER, MEDICAID, SELFPAY ==
--- NOTE | 2022-12-09 12:26 | DI.US.S_ITS ---
PROCEDURE: US OB LIMITED INDICATIONS: vaginal bleeding OUTSIDE/PRIOR DATING DATA: Last menstrual period (LMP): 08/28/2022. LMP-based estimated date of delivery (GURPREET): 06/04/2023. First dating scan (date and location): 11/09/2022. Estimated date of delivery (GURPREET) from first dating scan: 06/04/2023. TECHNIQUE: Real-time scanning was performed of the fetus, with image documentation. COMPARISON: [facility], US, US OB <= 14 WEEKS FETUS, 11/30/2022, 0:57. Ob ultrasound on 11/30/2022. FINDINGS: Fetus: A single living intrauterine gestation is present. The estimated gestational age is 14 weeks and 5 days. Heart rate: 160 beats per minute Perigestational hemorrhage: Measures 13.4 x 1.2 x 7.1 cm, previously 4.7 x 0.7 x 3.9 cm. IMPRESSION: 1. Single living intrauterine . Estimated gestational age is 14 weeks and 5 days. 2. Perigestational hemorrhage has increased in size measuring 13.4 x 1.2 x 7.1 cm, previously 4.7 x 0.7 x 3.9 cm. Dictated by: Savanah Lewis M.D. on 12/09/2022 at 14:38 Approved by: Savanah Lewis M.D. on 12/09/2022 at 14:43
== END ==
PROVIDERS: Family Provider Pediatrics; PCP Nurse Practitioner; Referring Provider Family Medicine; Visit Provider Family Medicine
DX: O20.9 Hemorrhage in early pregnancy, unspecified (principal); Z3A.14 14 weeks gestation of pregnancy
CPT/HCPCS: 76815

== ENCOUNTER → 2022-12-19 15:55 | Outpatient (CLI) | payer OTHER, MEDICAID, SELFPAY ==
--- NOTE | 2022-12-19 | DI.US.S_ITS ---
PROCEDURE: US OB FOLLOW UP INDICATIONS: BLEEDING WITH OUTSIDE/PRIOR DATING DATA: Last menstrual period (LMP): Unknown. LMP-based estimated date of delivery (GURPREET): Unknown. First dating scan (date and location): 11/09/2022. Estimated date of delivery (GURPREET) from first dating scan: 06/04/2023. The calculations are made using the ultrasound GURPREET of 06/04/2023. TECHNIQUE: Real-time scanning was performed of the fetus, with image documentation. Endovaginal scanning: Not performed. COMPARISON: [facility], OB LIMITED, 12/09/2022, 12:42. FINDINGS: A single living intrauterine gestation is present. Placenta: Placental position is posterior. Amniotic fluid index: Subjectively normal. heart rate: 162 beats per minute. Subchorionic hemorrhage measuring 13.4 x 7.1 x 1.2 cm, estimated volume of 59 cc. (Previously 4.7 x 3.9 x 0.7 cm, estimated volume of 7 cc. Clinically estimated gestational age: 14 weeks 5 days IMPRESSION: 1. [place] living intrauterine at 14 weeks 5 days based on prior dating. heart rate 162 bpm. 2. Large perigestational hemorrhage which is increased compared to 12/09/2022. Dictated by: Sathish Amaro M.D. on 12/19/2022 at 19:46 Approved by: Sathish Amaro M.D. on 12/19/2022 at 19:51
== END ==
PROVIDERS: Family Provider Pediatrics; PCP Nurse Practitioner; Referring Provider Student in an Organized Health Care Education/Training Program; Visit Provider Student in an Organized Health Care Education/Training Program
DX: O20.9 Hemorrhage in early pregnancy, unspecified (principal); Z3A.14 14 weeks gestation of pregnancy
CPT/HCPCS: 76816

== ENCOUNTER 2022-12-22 13:48 | Emergency (ER) | payer OTHER, MEDICAID, SELFPAY ==
[2022-12-22 14:22] VITALS: BP 138/82; PULSE 89; RESP 20; TEMP 37.1; O2SAT 100; BMI 52.5
--- NOTE | 2022-12-22 14:37 | DI.US.S_ITS ---
PROCEDURE: US OB LIMITED INDICATIONS: CRAMPING; KNOWN HEMATOMA OUTSIDE/PRIOR DATING DATA: Last menstrual period (LMP): Unknown. LMP-based estimated date of delivery (GURPREET): Unknown. First dating scan (date and location): 11/09/2022. Estimated date of delivery (GURPREET) from first dating scan: 06/04/2023. The calculations are made using the ultrasound GURPREET of 06/04/2023. TECHNIQUE: Real-time scanning was performed of the fetus, with image documentation and biometric measurements. Endovaginal scanning: Not performed COMPARISON: [facility], OB LIMITED, 12/09/2022, 12:42. FINDINGS: General: A single living intrauterine gestation is present. Presentation: Breech. Placenta: Placental position is posterior , without previa. heart rate: 157 beats per minute. biometrics: Clinically estimated gestational age: 16 weeks 4 days Other: Subchronic hemorrhage is similar to mildly increased in size compared to prior measuring 11.4 x 1.0 x 6.8 centimeters, previously 10.0 x 1.0 x 6.9 centimeters IMPRESSION: 1. Single live intrauterine at 16 weeks and 4 days. 2. Similar to mildly increased size of subchorionic hemorrhage as described above. We strive to produce accurate, complete, and clear reports of imaging services. To assist us in improving patient care, this report was composed using standard report templates and voice recognition software. Therefore, it may contain abnormal punctuation, insertions and/or omissions. Occasional wrong-word or sound-alike substitutions may occur. Though we review the report and make efforts to correct it, we do recommend that the report be read carefully in proper context to recognize any text inaccuracies. Dictated by: Jono Dumont M.D. on 12/22/2022 at 15:17 Approved by: Jono Dumont M.D. on 12/22/2022 at 15:21
[2022-12-22 18:09] LABS: Amorphous Sediment Urine 2+; Bacteria Urine Few (2-10); Mucus Urine 1+ (Negative); RBC Urine None Seen (0-5/HPF); Squamous Epithelial Cell Urine 1-5 /HPF (0-5/HPF); WBC Urine 0-1/HPF (0-5/HPF)
[2022-12-22 18:10] LABS: Culture Indicated Urine Specimen Cultured
[2022-12-22 18:53] LABS: Blood Urea Nitrogen 4 mg/dL (7-17); Carbon Dioxide 23 mmol/L (22-32); Chloride 103 mmol/L (98-107); HEMOLYSIS < 15 (0-50); Potassium 3.6 mmol/L (3.4-5.1); Sodium 135 mmol/L (137-145)
[2022-12-22 18:54] LABS: Alanine Aminotransferase 46 IU/L (<35); Albumin 3.9 g/dL (3.5-5.0); Albumin Globulin Ratio 1.1 (1.0-2.8); Alkaline Phosphatase 68 U/L (38-126); Aspartate Aminotransferase 34 IU/L (14-36); BUN Creatinine Ratio 7.7 (6-22); Bilirubin Total 0.5 mg/dL (0.2-1.3); Calcium 9.5 mg/dL (8.4-10.2); Estimated Glomerular Filt Rate > 60 mL/min (>60); Globulin 3.5 g/dL (1.7-4.1); Glucose 106 mg/dL (70-100); Total Protein 7.4 g/dL (6.3-8.2)
[2022-12-22 18:59] LABS: Add Manual Diff / Slide Review NO; Basophils Absolute Auto 0 /uL (0-100); Basophils Percent Auto 0.3 % (0-2); Eosinophils Absolute Auto 100 /uL (0-450); Eosinophils Percent Auto 0.7 % (2-4); Hematocrit 37.2 % (36-46); Hemoglobin 12.8 g/dL (12.0-16.0); Lymphocytes Absolute Auto 2100 /uL (1100-4500); Lymphocytes Percent Auto 22.2 % (25-40); Mean Corpuscular HGB Conc 34.4 % (30-36); Mean Corpuscular Hemoglobin 29.5 PG (26-34); Mean Corpuscular Volume 85.7 fL (80-100); Monocytes Absolute Auto 400 /uL (0-900); Monocytes Percent Auto 4.4 % (3-14); Neutrophils Absolute Auto 7000 /uL (1500-7000); Neutrophils Percent Auto 72.4 % (50-75); Platelet Count 404 X10^3/uL (150-400); Red Blood Cell Count 4.34 X10^6/uL (4.0-5.2); Red Cell Distribution Width 14.8 % (11.6-14.8); White Blood Cell Count 9.6 X10^3/uL (4.5-11.0)
--- NOTE | 2022-12-22 19:32 | ED.GENADULT ---
HPI - General Adult General Chief complaint: OB/Uterine Contractions Stated complaint: 16 wks / low cramps/ bleeding Time Seen by Provider: 12/22/22 17:36 Source: patient Mode of arrival: Ambulatory History of Present Illness HPI narrative: 22-year-old woman currently at 16 and 4 presents with vaginal bleeding. She was diagnosed with a subchorionic bleed on November 25 has had multiple ultrasounds since. She has been on leave from work as work was not able to accommodate light duty restrictions. Today she had additional bleeding contacted her doctor and was instructed to come to the emergency department. Another ultrasound was performed. She reports no fever, cough, chills. She has had a bit of constipation and is wondering if she should be straining with this or not. Related Data Home Medications Medication Instructions Recorded Confirmed [id number] 400 mcg-om3 35 mg-dha 25 tab PO 10/06/22 12/05/22 mg-epa 5 mg-fish oil chewable tablet Previous Rx's Medication Instructions Recorded ondansetron 4 mg disintegrating 4 mg PO Q8H PRN nausea and 11/23/22 tablet vomiting #20 tabs Allergies Allergy/AdvReac Type Severity Reaction Status Date / Time No Known Drug Allergies Allergy Verified 12/22/22 14:29 Review of Systems Review of Systems Narrative: Pertinent positive and negative findings as per HPI Patient History Medical History PTSD (post-traumatic stress disorder) (~2012) Depression (~2012) Bipolar disorder (~2021) Asthma Healthy adult Surgical History No pertinent past surgical history Family History Father Depression Anxiety PTSD (post-traumatic stress disorder) Mother Mental health disorder Diabetes mellitus Anxiety Depression Bipolar disorder PIH ( induced hypertension) Grandmother Breast cancer Social History marital status: number of children: 0 household members: spouse and family (grandfather) lives independently: Yes caregiver/support person: No housing: house (manufactured home) pets and animals: Yes (grandfather's cat, she doesn't deal w/ litter box) education level: college (student) 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) special sylvain needs: No travel history: recent seatbelt use: always water heater temp set < 120 deg: Yes working smoke detector in home: Yes fire extinguisher in home: Yes carbon monox detector in home: Yes firearms in home: Yes firearms unloaded and locked: Yes do you feel safe at home: Yes (answered w/ present ) Smoking Status: Never smoker second hand exposure: No alcohol intake: former (occasionally when not ) substance use type: does not use during the past year weight has: remained stable well-balanced diet: rarely or never daily servings fruits/ve-1 caffeine: Yes (aware of 200mg limit) Type(s) of exercise: walking duration: 15-30 minutes/day Smoking Status: Never smoker Substance Use Type: does not use Exam Initial Vital Signs Initial Vital Signs: Vital Signs Temperature 98.8 F 12/22/22 14:22 Pulse Rate 89 12/22/22 14:22 Respiratory Rate 20 12/22/22 14:22 Blood Pressure 138/82 12/22/22 14:22 Pulse Oximetry 100 12/22/22 14:22 Oxygen Delivery Method Room Air 12/22/22 14:22 General: Alert appropriate in no acute distress Respiratory: Able to speak in full sentences, no obvious respiratory distress Skin: No obvious rashes, warm and dry Abdomen: No tenderness to palpation Neurologic: Grossly intact no obvious asymmetries or abnormalities Psych: appropriate insight and affect, cooperative Course Orders Ordered: ED Orders 12/22/22 14:37 US OB limited Stat 12/22/22 17:48 Urine Culture Stat Urine Microscopic Stat 12/22/22 18:26 ABO RH Type Stat Complete Blood Count AUTO DIFF Stat Comprehensive Metabolic Panel Stat HCG Quantitative /Beta subunit Stat Vital Signs Vital signs: Vital Signs - 8 hr 12/22/22 14:22 Temperature 98.8 F Pulse Rate 89 Respiratory Rate 20 Blood Pressure 138/82 Pulse Oximetry 100 Oxygen Delivery Method Room Air Medical Decision Making Lab Data 12/22/22 18:26 12/22/22 18:26 Labs: Lab Results 12/22/22 12/22/22 Range/Units 17:48 18:26 WBC 9.6 (4.5-11.0) X10^3/uL RBC 4.34 (4.0-5.2) X10^6/uL Hgb 12.8 (12.0-16.0) g/dL Hct 37.2 (36-46) % MCV 85.7 (80-100) fL MCH 29.5 (26-34) PG MCHC 34.4 (30-36) % RDW 14.8 (11.6-14.8) % Plt Count 404 H (150-400) X10^3/uL Neut % (Auto) 72.4 (50-75) % Lymph % (Auto) 22.2 L (25-40) % [place] % (Auto) 4.4 (3-14) % Eos % (Auto) 0.7 L (2-4) % Baso % (Auto) 0.3 (0-2) % Neut # (Auto) 7000 (5920-9192) /uL Lymph # (Auto) 2100 (3482-3202) /uL [place] # (Auto) 400 (0-900) /uL Eos # (Auto) 100 (0-450) /uL Baso # (Auto) 0 (0-100) /uL Sodium 135 L (137-145) mmol/L Potassium 3.6 (3.4-5.1) mmol/L Chloride 103 (98-107) mmol/L Carbon Dioxide 23 (22-32) mmol/L BUN 4 L (7-17) mg/dL Creatinine 0.52 (0.52-1.04) mg/dL Estimated GFR > 60 (>60) mL/min BUN/Creatinine Ratio 7.7 (6-22) Glucose 106 H (70-100) mg/dL Calcium 9.5 (8.4-10.2) mg/dL Total Bilirubin 0.5 (0.2-1.3) mg/dL AST 34 (14-36) IU/L ALT 46 H (<35) IU/L Alkaline Phosphatase 68 (38-126) U/L Total Protein 7.4 (6.3-8.2) g/dL Albumin 3.9 (3.5-5.0) g/dL Globulin 3.5 (1.7-4.1) g/dL Albumin/Globulin Ratio 1.1 (1.0-2.8) Urine RBC None seen (0-5/HPF) Urine WBC 0-1/hpf (0-5/HPF) Ur Squamous Epith Cells 1-5 /hpf (0-5/HPF) Amorphous Sediment 2+ Urine Bacteria Few (2-10) H (None) Urine Mucus 1+ H (Negative) Ur Culture Indicated? Specimen cultured Urine Dip Bedside Urine Glucose Negative Bedside Urine Bilirubin - Negative Bedside Urine Ketone - Negative Urine Specific [place] 1.025 Bedside Urine Occult Blood +++ Bedside Urine pH 6.0 Bedside Urine Protein +/- 15 Bedside Urine Urobilinogen - Negative Bedside Urine Nitrite - Negative Bedside Urine Leukocytes +/- 15 Esterase Point of care testing: Urine Dip Bedside Urine Glucose Negative Bedside Urine Bilirubin - Negative Bedside Urine Ketone - Negative Urine Specific [place] 1.025 Bedside Urine Occult Blood +++ Bedside Urine pH 6.0 Bedside Urine Protein +/- 15 Bedside Urine Urobilinogen - Negative Bedside Urine Nitrite - Negative Bedside Urine Leukocytes +/- 15 Esterase MDM Narrative Medical decision making narrative: CC: Vaginal bleeding, 16 weeks Complicating co-morbidities: Subchorionic hemorrhage diagnosed a month ago Data collected from: patient, spouse Medical records reviewed: Ultrasounds from November 26 18 December 19, 2026 and today are reviewed and compared. Differential considered: Enlarging subchorionic hemorrhage Exam documented above, pertinent findings include: Abdomen is nontender Consultations: There are some inconsistencies between the 12/19 ultrasound and today's ultrasound. All ultrasound reviewed in real-time with Dr. Beckham. The 12/19 document has some inaccuracies and an addendum will be added. Treatments: All 5 ultrasounds are printed out, in accuracy that will be changed and findings are reviewed with the patient and her . Discussion: 22-year-old 16 weeks and 4 days with subchorionic hemorrhage still some occasional episodes of red pink vaginal bleeding and brown discharge in the morning. She is been on light duty however light duty options are not available so she is essentially been home for the last month. At this point it does look like the hemorrhage is not expanding and the fetus is growing appropriately. Given the occasional and at least daily red bleeding I have recommended continued rest at home. She understands pelvic rest precautions. She will need to fill out medical leave forms as she likely will have a 6-8 week period where she is unable to work due to the subchorionic hemorrhage and work not having light duty options for her. At this point mom and fetus are both stable. Questions are answered and she is safe for discharge Discharge Plan Departure Patient Disposition: Home Clinical Impression: 16 weeks gestation of Subchorionic hemorrhage in second trimester Qualifiers: Fetus number: single or unspecified fetus Qualified Code(s): O41.8X20 - Other specified disorders of amniotic fluid and membranes, second trimester, not applicable or unspecified Constipation Qualifiers: Constipation type: slow transit constipation Qualified Code(s): K59.01 - Slow transit constipation Instructions: DI for Miscarriage Activity Restrictions/Additional Instructions: Thank you for coming in today Your questions regarding your ultrasound results are absolutely appropriate. I have reviewed all ultrasound since November 26 with the radiologist today, in real-time. The ultrasound from December 19 will be amended. At this time it does look like your baby is growing appropriately is measuring 16 weeks and 4 days. It also looks like the subchorionic hemorrhage is not as big as it had been at 13 cm in biggest dimension and is essentially stable between 10 and 11 cm now. At this time, if work is unable to accommodate light duty, I would recommend that you continue to stay home. You will need to fill out medical leave forms. I would recommend medical leave for at least 1 week after the last episode of red bleeding. The brown discharge is simply old blood that your body is getting rid of and does not indicate new bleeding. Please follow-up with your routine OB provider. If you find that you are getting worse or develop any new symptoms, please feel free to return to the emergency department for further evaluation. Prescriptions: No Action ondansetron 4 mg tablet,disintegrating 4 mg PO Q8H PRN (Reason: nausea and vomiting) Qty: 20 0RF Rx Instructions: Take one tab every 8 hours as needed only for nausea and vomiting [id number] oil 400 mcg-35 mg -25 mg-5 mg tablet,chewable PO Referrals: Lilo Fink ARNP [Primary Care Provider] - Stand Alone Forms: Patient Portal/API
[2022-12-22 20:01] LABS: HCG Quantitative /Beta subunit 22954 mIU/mL
[2022-12-22 20:28] VITALS: BP 134/72; PULSE 82; RESP 18; TEMP 36.7; O2SAT 97
== END 2022-12-22 20:36 | disposition home or self-care (01) ==
PROVIDERS: Emergency Medicine; Emergency Provider Emergency Medicine; Family Provider Pediatrics; PCP Nurse Practitioner
DX: O41.8X20 Other specified disorders of amniotic fluid and membranes, second trimester, not applicable or unspecified (principal); K59.01 Slow transit constipation; Z3A.16 16 weeks gestation of pregnancy
CPT/HCPCS: 76815; 80053; 81003; 81015; 84702; 85025; 86900; 86901; 87086; 99282; 99284

== ENCOUNTER → 2023-01-04 12:09 | Outpatient (CLI) | payer OTHER, MEDICAID, SELFPAY ==
[2023-01-04 13:22] LABS: Add Manual Diff / Slide Review NO; Basophils Absolute Auto 0 /uL (0-100); Basophils Percent Auto 0.3 % (0-2); Eosinophils Absolute Auto 100 /uL (0-450); Eosinophils Percent Auto 0.5 % (2-4); Hematocrit 37.2 % (36-46); Hemoglobin 12.9 g/dL (12.0-16.0); Lymphocytes Absolute Auto 2000 /uL (1100-4500); Lymphocytes Percent Auto 20.7 % (25-40); Mean Corpuscular HGB Conc 34.7 % (30-36); Mean Corpuscular Hemoglobin 29.7 PG (26-34); Mean Corpuscular Volume 85.5 fL (80-100); Monocytes Absolute Auto 400 /uL (0-900); Monocytes Percent Auto 4.5 % (3-14); Neutrophils Absolute Auto 7100 /uL (1500-7000); Platelet Count 375 X10^3/uL (150-400); Red Blood Cell Count 4.35 X10^6/uL (4.0-5.2); Red Cell Distribution Width 14.5 % (11.6-14.8); White Blood Cell Count 9.6 X10^3/uL (4.5-11.0)
[2023-01-04 13:42] LABS: Alanine Aminotransferase 35 IU/L (<35); Albumin 3.9 g/dL (3.5-5.0); Albumin Globulin Ratio 1.1 (1.0-2.8); Alkaline Phosphatase 87 U/L (38-126); Aspartate Aminotransferase 35 IU/L (14-36); BUN Creatinine Ratio 5.6 (6-22); Bilirubin Total 0.6 mg/dL (0.2-1.3); Blood Urea Nitrogen 3 mg/dL (7-17); Calcium 9.9 mg/dL (8.4-10.2); Carbon Dioxide 27 mmol/L (22-32); Chloride 103 mmol/L (98-107); Estimated Glomerular Filt Rate > 60 mL/min (>60); Globulin 3.6 g/dL (1.7-4.1); Glucose 94 mg/dL (70-100); HEMOLYSIS < 15 (0-50); Potassium 3.8 mmol/L (3.4-5.1); Sodium 135 mmol/L (137-145); Total Protein 7.5 g/dL (6.3-8.2)
== END ==
PROVIDERS: Family Provider Pediatrics; PCP Nurse Practitioner; Referring Provider Family Medicine; Visit Provider Family Medicine
DX: Z34.81 Encounter for supervision of other normal pregnancy, first trimester (principal); O16.9 Unspecified maternal hypertension, unspecified trimester
CPT/HCPCS: 36415; 80053; 85025

== ENCOUNTER → 2023-01-18 14:50 | Outpatient (CLI) | payer OTHER, MEDICAID, SELFPAY ==
--- NOTE | 2023-01-18 14:51 | DI.US.S_ITS ---
PROCEDURE: US OB >= 14 WEEKS FETUS INDICATIONS: anatomy scan OUTSIDE/PRIOR DATING DATA: Last menstrual period (LMP): Unknown. LMP-based estimated date of delivery (GURPREET): 06/04/2023. First dating scan (date and location): 11/09/2022. Estimated date of delivery (GURPREET) from first dating scan: 06/04/2023. The calculations are made using the ultrasound GURPREET of 06/04/2023. TECHNIQUE: Real-time scanning was performed of the fetus, with image documentation and biometric measurements. COMPARISON: [facility], , OB LIMITED, 12/22/2022, 14:47. FINDINGS: General: A single living intrauterine gestation is present. Presentation: Breech. Placenta: Placental position is posterior, without previa. Amniotic fluid index: 12.7 cm, normal range is 5-24 cm. Single deepest vertical pocket is 3.5 cm. heart rate: 155 beats per minute. Maternal cervical canal: 4.9 cm long. Normal lower limit is 2.5 cm. biometrics: Biparietal diameter: 4.9 cm, 21 weeks 0 days Head circumference: 18.4 cm, 20 weeks 6 days Abdominal circumference: 15.7 cm, 20 weeks 6 days Femur length: 3.4 cm, 20 weeks 4 days Clinically estimated gestational age: 20 weeks 3 days Composite gestational age from present scan: 20 weeks 6 days Estimated weight and percentile: 372 g, 61st percentile Anatomic survey: Neuro: Ventricles are non-dilated at less than 10 mm. Cisterna magna is normal at 3-11 mm. Cerebellum is normal in size and morphology. Nuchal skin fold: Normal at less than 6 mm between 14-21 weeks gestational age. Face: Nose and lips are normal. Facial profile is not seen. Spine: No evidence for spina bifida. Heart: Outflow tracks are not well seen. Four-chamber view appears normal. Diaphragm: Diaphragm is intact. Stomach: Left-sided stomach is present. Kidneys: No hydronephrosis. Normal is less than 5 mm in 2nd trimester, less than 7 mm in 3rd trimester. Cord: 3-vessel cord has orthotopic insertion. Bladder: Normal in size. Extremities: All 4 extremities identified. Gender is not well seen. Small perigestational hemorrhage measuring 9.9 x 6.2 x 0.7 cm (previously 11.4 x 6.8 x 1 cm). IMPRESSION: Technically difficult exam due to lie, body habitus, and acoustic windows. 1. Holden living intrauterine at 20 weeks 6 days based on today's ultrasound. Fetus is in the 61st percentile for weight. 2. Normal placenta and amniotic fluid. 3. facial profile, cardiac outflow tracks, and gender are not well seen. Other anatomy appears normal. 4. Small perigestational hemorrhage is decreased. Recommend follow-up OB ultrasound. We strive to produce accurate, complete, and clear reports of imaging services. To assist us in improving patient care, this report was composed using standard report templates and voice recognition software. Therefore, it may contain abnormal punctuation, insertions and/or omissions. Occasional wrong-word or sound-alike substitutions may occur. Though we review the report and make efforts to correct it, we do recommend that the report be read carefully in proper context to recognize any text inaccuracies. Dictated by: Sathish Amaro M.D. on 01/18/2023 at 16:54 Approved by: Sathish Amaro M.D. on 01/18/2023 at 16:59
== END ==
PROVIDERS: Family Provider Pediatrics; PCP Nurse Practitioner; Referring Provider Family Medicine; Visit Provider Family Medicine
DX: Z34.92 Encounter for supervision of normal pregnancy, unspecified, second trimester (principal); Z3A.20 20 weeks gestation of pregnancy
CPT/HCPCS: 76811

== ENCOUNTER → 2023-02-01 14:37 | Outpatient (CLI) | payer OTHER, MEDICAID, SELFPAY ==
--- NOTE | 2023-02-01 14:37 | DI.US.S_ITS ---
PROCEDURE: US OB FOLLOW UP INDICATIONS: RE-EVALUATE PROFILE, OUTFLOW TRACTS, GENDER OUTSIDE/PRIOR DATING DATA: Last menstrual period (LMP): Unknown. LMP-based estimated date of delivery (GURPREET): Unknown. First dating scan (date and location): 11/09/2022. Estimated date of delivery (GURPREET) from first dating scan: 06/04/2023. The calculations are made using the ultrasound GURPREET of 06/04/2023. TECHNIQUE: Real-time scanning was performed of the fetus, with image documentation. Endovaginal scanning: Not performed COMPARISON: [facility], OB >= 14 WEEKS FETUS, 01/18/2023, 15:06. [facility], OB FOLLOW UP, 12/19/2022, 16:02. FINDINGS: A single living intrauterine gestation is present. Presentation: Breech. Placenta: Placental position is posterior, without previa. Amniotic fluid index: 20.3 cm, normal range is 5-24 cm. Single deepest vertical pocket is 6.6 cm. heart rate: 144 beats per minute. Maternal cervical canal: 4.1 cm long. Normal lower limit is 2.5 cm. Clinically estimated gestational age: Not applicable Estimated gestational age from initial scan: 22 weeks, 3 days. Unable to visualize gender, facial profile and outflow tract secondary to body habitus and positioning. IMPRESSION: Single live intrauterine . Unable to visualize gender, facial profile and cardiac out flow tracks secondary to body habitus and positioning. Dictated by: Jono Dumont M.D. on 02/01/2023 at 16:50 Approved by: Jono Dumont M.D. on 02/01/2023 at 16:53
== END ==
PROVIDERS: Family Provider Pediatrics; PCP Nurse Practitioner; Referring Provider Family Medicine; Visit Provider Family Medicine
DX: O20.9 Hemorrhage in early pregnancy, unspecified (principal); Z36.2 Encounter for other antenatal screening follow-up; Z3A.22 22 weeks gestation of pregnancy
CPT/HCPCS: 76816

== ENCOUNTER → 2023-02-16 15:02 | Outpatient (CLI) | payer OTHER, MEDICAID, SELFPAY ==
--- NOTE | 2023-02-16 15:03 | DI.US.S_ITS ---
PROCEDURE: US OB FOLLOW UP INDICATIONS: structures not seen OUTSIDE/PRIOR DATING DATA: Last menstrual period (LMP): Unknown LMP-based estimated date of delivery (GURPREET): 06/04/2023 First dating scan (date and location): 11/09/2022 Estimated date of delivery (GURPREET) from first dating scan: 06/04/2023. The calculations are made using the working GURPREET of 06/04/2023 TECHNIQUE: Real-time scanning was performed of the fetus, with image documentation . Endovaginal scanning: Not indicated COMPARISON: [facility], , OB FOLLOW UP, 02/01/2023, 15:07. FINDINGS: General: A single living intrauterine gestation is present. Presentation: Vertex Placenta: Placental position is posterior, without previa. Amniotic fluid index: 12.5 cm, normal range is 5-24 cm. Single deepest vertical pocket is 4.2 cm. heart rate: 147 beats per minute. Maternal cervical canal: 3.8 cm long. Normal lower limit is 2.5 cm. Clinically estimated gestational age: 24 weeks, 4 days Other: Four-chamber heart and ventricular outflow tracts are visualized and are within normal limits. A 4.3 x 0.7 x 3.2 cm subchorionic hemorrhage is seen decreased in size compared to 11.4 x 6.8 cm seen on previous study. IMPRESSION: 1. Single live intrauterine gestation with fetus in vertex presentation. heart rate is 147 beats per minute. Normal amount of amniotic fluid. 2. four-chamber heart and ventricular outflow tracts are visualized and are within normal limits. 3. Interval significant decrease in size of patient's known subchorionic hematoma as above. We strive to produce accurate, complete, and clear reports of imaging services. To assist us in improving patient care, this report was composed using standard report templates and voice recognition software. Therefore, it may contain abnormal punctuation, insertions and/or omissions. Occasional wrong-word or sound-alike substitutions may occur. Though we review the report and make efforts to correct it, we do recommend that the report be read carefully in proper context to recognize any text inaccuracies. Dictated by: Milton Peace M.D. on 02/16/2023 at 16:53 Approved by: Milton Peace M.D. on 02/16/2023 at 16:55
== END ==
PROVIDERS: Family Provider Pediatrics; PCP Nurse Practitioner; Referring Provider Family Medicine; Visit Provider Family Medicine
DX: O41.8X20 Other specified disorders of amniotic fluid and membranes, second trimester, not applicable or unspecified (principal); O46.8X2 Other antepartum hemorrhage, second trimester; Z3A.24 24 weeks gestation of pregnancy
CPT/HCPCS: 76816

== ENCOUNTER → 2023-03-22 14:34 | Outpatient (CLI) | payer OTHER, MEDICAID, SELFPAY ==
--- NOTE | 2023-03-22 15:52 | DI.US.S_ITS ---
PROCEDURE: US OB LIMITED INDICATIONS: EFW OUTSIDE/PRIOR DATING DATA: Last menstrual period (LMP): Not reported. LMP-based estimated date of delivery (GURPREET): 06/04/2023. First dating scan (date and location): 11/09/2022. Estimated date of delivery (GURPREET) from first dating scan: 06/04/2023. The calculations are made using the ultrasound GURPREET of 06/04/2023. TECHNIQUE: Real-time scanning was performed of the fetus, with image documentation and biometric measurements. Endovaginal scanning: Not performed COMPARISON: [facility], OB LIMITED, 12/22/2022, 14:47. FINDINGS: General: A single living intrauterine gestation is present. Presentation: Vertex. Placenta: Placental position is posterior , without previa. Amniotic fluid index: 13.4 cm, normal range is 5-24 cm. Single deepest vertical pocket is 6.7 cm. heart rate: 149 beats per minute. Maternal cervical canal: 4.4 cm long. Normal lower limit is 2.5 cm. biometrics: Biparietal diameter: 8 cm, 32 weeks 0 days Head circumference: 28.3 cm, 31 weeks 0 days Abdominal circumference: 26.8 cm, 30 weeks 6 days Femur length: 6 cm, 31 weeks 2 days Clinically estimated gestational age: 29 weeks 3 days Composite gestational age from present scan: 31 weeks 2 days Estimated weight and percentile: 1695 g, 90th percentile Other: Not applicable. IMPRESSION: Single living intrauterine at 29 weeks 3 days, GURPREET of 06/04/2023. Estimated weight of 1695 g, 90th percentile. We strive to produce accurate, complete, and clear reports of imaging services. To assist us in improving patient care, this report was composed using standard report templates and voice recognition software. Therefore, it may contain abnormal punctuation, insertions and/or omissions. Occasional wrong-word or sound-alike substitutions may occur. Though we review the report and make efforts to correct it, we do recommend that the report be read carefully in proper context to recognize any text inaccuracies. Dictated by: Reilly Vázquez M.D. on 03/22/2023 at 17:09 Approved by: Reilly Vázquez M.D. on 03/22/2023 at 17:11
[2023-03-22 17:50] LABS: Add Manual Diff / Slide Review NO; Basophils Absolute Auto 0 /uL (0-100); Basophils Percent Auto 0.3 % (0-2); Eosinophils Absolute Auto 100 /uL (0-450); Eosinophils Percent Auto 0.9 % (2-4); Hematocrit 35.2 % (36-46); Lymphocytes Absolute Auto 2100 /uL (1100-4500); Lymphocytes Percent Auto 19.4 % (25-40); Mean Corpuscular HGB Conc 34.2 % (30-36); Mean Corpuscular Hemoglobin 29.8 PG (26-34); Mean Corpuscular Volume 87.1 fL (80-100); Monocytes Absolute Auto 600 /uL (0-900); Monocytes Percent Auto 5.5 % (3-14); Neutrophils Absolute Auto 7900 /uL (1500-7000); Neutrophils Percent Auto 73.9 % (50-75); Platelet Count 397 X10^3/uL (150-400); Red Blood Cell Count 4.04 X10^6/uL (4.0-5.2); Red Cell Distribution Width 14.2 % (11.6-14.8); White Blood Cell Count 10.7 X10^3/uL (4.5-11.0)
[2023-03-22 17:56] LABS: Creatinine Urine Random 30.6 mg/dL; Protein (Total) Urine Random 14 mg/dL (0-12); Protein Creatinine Ratio Urine 0.45 GRAM/24H
[2023-03-22 18:04] LABS: GTT (PREG) 1 Hour PP 50gm Dose 124 mg/dL (76-139)
== END ==
PROVIDERS: Family Provider Pediatrics; PCP Nurse Practitioner; Referring Provider Family Medicine; Visit Provider Family Medicine
DX: O16.3 Unspecified maternal hypertension, third trimester (principal); Z3A.29 29 weeks gestation of pregnancy
CPT/HCPCS: 36415; 76815; 82570; 82950; 84156; 85025; 86850

== ENCOUNTER → 2023-03-30 12:12 | Outpatient (CLI) | payer OTHER, MEDICAID, SELFPAY ==
[2023-03-30 19:30] LABS: Collection Time Urine 24 Hours; Protein (Total) Urine Random < 5 mg/dL (0-12); Total Protein 24 Hour Urine 50 mg/day (42-225); Total Volume Urine 1000 mL
== END ==
PROVIDERS: Family Provider Pediatrics; PCP Nurse Practitioner; Referring Provider Family Medicine; Visit Provider Family Medicine
DX: Z34.81 Encounter for supervision of other normal pregnancy, first trimester (principal); O24.419 Gestational diabetes mellitus in pregnancy, unspecified control
CPT/HCPCS: 84156

== ENCOUNTER 2023-04-17 08:59 | Outpatient (CLI) | payer OTHER, MEDICAID, SELFPAY ==
--- NOTE | 2023-04-17 09:37 | PM.OBTRLD ---
Visit Information Visit Information Date of evaluation: 04/17/23 Primary OB Provider: Lakeisha Morillo Comments/Additional reasons for admission: Pt is a 23yo at 33w1d here due to fall at home. She reports that she was walking down her outside stairs this morning and slipped on the step. She landed on her bottom. She had some abdominal cramping afterwards, now resolved. She denies any vaginal bleeding or LOF. She is feeling her baby move. PFSH Medical History PTSD (post-traumatic stress disorder) (~2012) Depression (~2012) Bipolar disorder (~2021) Asthma Healthy adult Surgical History No pertinent past surgical history Family History Father Depression Anxiety PTSD (post-traumatic stress disorder) Mother Mental health disorder Diabetes mellitus Anxiety Depression Bipolar disorder PIH ( induced hypertension) Grandmother Breast cancer Social History marital status: number of children: 0 household members: spouse and family (grandfather) lives independently: Yes caregiver/support person: No housing: house (manufactured home) pets and animals: Yes (grandfather's cat, she doesn't deal w/ litter box) education level: college (student) 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) special sylvain needs: No travel history: recent seatbelt use: always water heater temp set < 120 deg: Yes working smoke detector in home: Yes fire extinguisher in home: Yes carbon monox detector in home: Yes firearms in home: Yes firearms unloaded and locked: Yes do you feel safe at home: Yes (answered w/ present ) Smoking Status: Never smoker second hand exposure: No alcohol intake: former (occasionally when not ) substance use type: does not use during the past year weight has: remained stable well-balanced diet: rarely or never daily servings fruits/ve-1 caffeine: Yes (aware of 200mg limit) Type(s) of exercise: walking duration: 15-30 minutes/day Evaluation Evaluation Baseline heart rate: 135 Variability: Moderate (11-25) monitor accelerations: Present Monitor Decelerations: Absent Diagnosis, Plan/Disposition Final Diagnosis (1) 33 weeks gestation of : Status: Acute (2) Ground-level fall: Status: Acute Plan/Disposition Plan: 23yo at 33w1d here after ground level fall at home. NST reactive. No contractions. Pt did not hit her abdomen, prolonged monitoring not needed. Stable for d/c home. OB Disposition: home
== END 2023-04-17 09:40 | disposition home or self-care (01) ==
LOC: LABOR 09:08 → OB 04-21 09:59
PROVIDERS: Family Provider Pediatrics; PCP Nurse Practitioner; Referring Provider Family Medicine; Visit Provider Family Medicine
DX: O26.893 Other specified pregnancy related conditions, third trimester (principal); R10.9 Unspecified abdominal pain; W10.9XXA Fall (on) (from) unspecified stairs and steps, initial encounter; Z3A.33 33 weeks gestation of pregnancy
CPT/HCPCS: 59025; G0378; G0379

== ENCOUNTER → 2023-04-26 10:14 | Outpatient (CLI) | payer OTHER, MEDICAID, SELFPAY ==
--- NOTE | 2023-04-26 10:15 | DI.US.S_ITS ---
PROCEDURE: US OB FOLLOW UP INDICATIONS: LGA OUTSIDE/PRIOR DATING DATA: Last menstrual period (LMP): Not reported. LMP-based estimated date of delivery (GURPREET): 06/04/2023. First dating scan (date and location): 11/09/2022. Estimated date of delivery (GURPREET) from first dating scan: 06/04/2023. The calculations are made using the sonographic GURPREET of 06/04/2023. TECHNIQUE: Real-time scanning was performed of the fetus, with image documentation and biometric measurements. Endovaginal scanning: Not performed COMPARISON: [facility], OB FOLLOW UP, 02/16/2023, 15:23. FINDINGS: General: A single living intrauterine gestation is present. Presentation: Vertex. Placenta: Placental position is posterior left , without previa. Amniotic fluid index: 11.4 cm, normal range is 5-24 cm. Single deepest vertical pocket is 3.7 cm. heart rate: 141 beats per minute. Maternal cervical canal: 3.8 cm long. Normal lower limit is 2.5 cm. biometrics: Biparietal diameter: 9.0 cm, 36 weeks 4 days Head circumference: 31.3 cm, 35 weeks 1 day Abdominal circumference: 31.6 cm, 35 weeks 4 days Femur length: 6.9 cm, 35 weeks 2 days Clinically estimated gestational age: 34 weeks 3 days Composite gestational age from present scan: 35 weeks 5 days Estimated weight and percentile: 2702 g, 77th percentile IMPRESSION: Single living intrauterine at 34 weeks 3 days, GURPREET of 06/04/2023. Estimated weight of 2700 in 2 g, 77th percentile. We strive to produce accurate, complete, and clear reports of imaging services. To assist us in improving patient care, this report was composed using standard report templates and voice recognition software. Therefore, it may contain abnormal punctuation, insertions and/or omissions. Occasional wrong-word or sound-alike substitutions may occur. Though we review the report and make efforts to correct it, we do recommend that the report be read carefully in proper context to recognize any text inaccuracies. Dictated by: Reilly Vázquez M.D. on 04/26/2023 at 11:54 Approved by: Reilly Vázquez M.D. on 04/26/2023 at 11:56
== END ==
LOC: US 10:15
PROVIDERS: Family Provider Pediatrics; PCP Nurse Practitioner; Referring Provider Family Medicine; Visit Provider Family Medicine
DX: Z36.2 Encounter for other antenatal screening follow-up (principal); Z3A.34 34 weeks gestation of pregnancy
CPT/HCPCS: 76816

== ENCOUNTER 2023-05-08 16:51 | Outpatient (CLI) | payer OTHER, MEDICAID, SELFPAY | END 2023-05-08 18:13 | disposition home or self-care (01) | LOC: LABOR 18:17 → OB 05-10 12:03 | PROVIDERS: Family Provider Pediatrics; PCP Nurse Practitioner; Referring Provider Family Medicine; Visit Provider Family Medicine | DX: O26.853 Spotting complicating pregnancy, third trimester (principal); Z3A.36 36 weeks gestation of pregnancy | CPT/HCPCS: 59025; 84112; G0378; G0379 ==

== ENCOUNTER 2023-05-19 16:13 | Outpatient (CLI) | payer OTHER, MEDICAID, SELFPAY | END 2023-05-19 16:56 | disposition home or self-care (01) | LOC: LABOR 16:37 → OB 05-29 10:32 | PROVIDERS: Family Provider Pediatrics; PCP Nurse Practitioner; Referring Provider Family Medicine; Visit Provider Family Medicine | DX: O99.213 Obesity complicating pregnancy, third trimester (principal); Z3A.37 37 weeks gestation of pregnancy; Z36.9 Encounter for antenatal screening, unspecified | CPT/HCPCS: 59025; G0378; G0379 ==

== ENCOUNTER 2023-05-24 14:50 | Outpatient (CLI) | payer OTHER, MEDICAID, SELFPAY | END 2023-05-24 15:28 | disposition home or self-care (01) | LOC: LABOR 15:09 → OB 05-29 10:35 | PROVIDERS: Family Provider Pediatrics; PCP Nurse Practitioner; Referring Provider Obstetrics & Gynecology; Visit Provider Obstetrics & Gynecology | DX: O99.213 Obesity complicating pregnancy, third trimester (principal); Z3A.38 38 weeks gestation of pregnancy; Z36.9 Encounter for antenatal screening, unspecified | CPT/HCPCS: 59025; G0378; G0379 ==

== ENCOUNTER → 2023-05-25 09:50 | Outpatient (CLI) | payer OTHER, MEDICAID, SELFPAY ==
--- NOTE | 2023-05-25 09:50 | DI.US.S_ITS ---
PROCEDURE: US OB LIMITED INDICATIONS: growth, obesity OUTSIDE/PRIOR DATING DATA: Last menstrual period (LMP): Unknown. LMP-based estimated date of delivery (GURPREET): 06/04/2023. First dating scan (date and location): 11/09/2022. Estimated date of delivery (GURPREET) from first dating scan: 06/04/2023. The calculations are made using the ultrasound GURPREET of 06/04/2023. TECHNIQUE: Real-time scanning was performed of the fetus, with image documentation. Endovaginal scanning: Not performed. COMPARISON: [facility], OB LIMITED, 03/22/2023, 16:01. FINDINGS: A single living intrauterine gestation is present. Presentation: Not documented.. Placenta: Placental position is not well seen. Amniotic fluid index: 8.5 cm, normal range is 5-24 cm. Single deepest vertical pocket is 4.0 cm. heart rate: 141 beats per minute. Maternal cervical canal: Not well seen. Biometric measurements: BPD: 9.0 cm, 36 weeks 3 days HC: 32.4 cm, 36 weeks 5 days AC: 36.1 cm, 40 weeks 0 days FL: 7.4 cm, 37 weeks 6 days Clinically estimated gestational age: 38 weeks 4 days Estimated gestational age from today's scan: 37 weeks 5 days Weight in percentile: 3557 g, 69th percentile. IMPRESSION: 1. Holden living intrauterine at 37 weeks 5 days based on today's ultrasound. Estimated weight is in the 69th percentile. 2. Normal amniotic fluid. Dictated by: Sathish Amaro M.D. on 05/25/2023 at 11:33 Approved by: Sathish Amaro M.D. on 05/25/2023 at 11:38
== END ==
LOC: US 09:50
PROVIDERS: Family Provider Pediatrics; PCP Nurse Practitioner; Referring Provider Family Medicine; Visit Provider Family Medicine
DX: O99.213 Obesity complicating pregnancy, third trimester (principal); E66.01 Morbid (severe) obesity due to excess calories; Z3A.37 37 weeks gestation of pregnancy
CPT/HCPCS: 76815

== ENCOUNTER 2023-05-27 02:50 | Inpatient (IN) | payer OTHER, MEDICAID, SELFPAY ==
--- NOTE | 2023-05-27 05:44 | PM.OBHP.IH.1 ---
OB HPI Date/Time Date of admission: 05/27/23 Date Patient Seen: 05/27/23 History of Present Condition Chief complaint: GURPREET Calculator Estimated Delivery Date Method Current WG Current Estimate 06/04/23 Manual 38w 6d Final GURPREET - CAMI Other Estimates 06/04/23 LMP (Certain) 38w 6d 06/07/23 Ultrasound #1 38w 3d Estimated Gestational Age (weeks): 38w6d : 2 Para: 0 Narrative: Pt is a 23yo at 38w6d here with regular contractions. Pt reports contractions started around 2:20am, increasing in intensity and frequency significantly since then. Now every 2-3 minutes, breathing through them. She had some bloody show after her cervical exam. No LOF. She is feeling her baby move regularly. The pts was complicated by large subchorionic hemorrhage in the 1st and 2nd trimester, however this resolved very gradually in the late second trimester. The pts care was transitioned to [place] due to her BMI being > 50 in the late 3rd trimester. care: good care, initiated at week # (10) and pounds weight gain (5) Dating criteria OB: LMP confirmed by 1st trimester US Ultrasounds: normal 1st trimester US, normal mid trimester US and abnormal US findings (large subchorionic hemorrhage) Obstetrical complications: none Medical complications OB: none Preadmission Labs Last OB Lab Results: Blood Type O Negative 12/22/22 18:26 Antibody Screen Negative 03/22/23 15:52 Hematocrit 35.2 % (36-46) L 03/22/23 15:52 Hemoglobin 12.0 g/dL (12.0-16.0) 03/22/23 15:52 Hepatitis B Surface Antigen Negative s/c (NEGATIVE) 11/09/22 13:30 Hepatitis C Antibody Negative s/c (NEGATIVE) 11/09/22 13:30 Rubella Antibody 18.4 IU/mL (>15) 11/09/22 13:30 Varicella-Zoster IgG Antibody 206 index (Immune >165) 11/09/22 13:30 Glucose 1 Hour 124 mg/dL (76-139) 03/22/23 15:52 -: Urine: negative External Labs -: Urine: negative Prior (ies) Past Pregnancies Del. Date GA/Weeks Labor Lgth Wt Sex Route Outcome Anesthesia Place Delv Breastfeed Preg Comp Name 05/15/19 ? spontaneous Delivery Date: 05/15/19 Last Updated by: Lissy Bishop RN passed spontaneously, no complications Evaluation Evaluation Baseline heart rate: 125 Variability: Moderate (11-25) monitor accelerations: Present Monitor Decelerations: Absent Contraction Frequency (minutes): 3 Status: Category l Dilation (cm): 5 Effacement (%): 100 Position of cervix: anterior Consistency: soft PFSH Medical History PTSD (post-traumatic stress disorder) (~2012) Depression (~2012) Bipolar disorder (~2021) Asthma Healthy adult Surgical History No pertinent past surgical history Family History Father Depression Anxiety PTSD (post-traumatic stress disorder) Mother Mental health disorder Diabetes mellitus Anxiety Depression Bipolar disorder PIH ( induced hypertension) Grandmother Breast cancer Social History marital status: number of children: 0 household members: spouse and family (grandfather) lives independently: Yes caregiver/support person: No housing: house (manufactured home) pets and animals: Yes (grandfather's cat, she doesn't deal w/ litter box) education level: college (student) 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) special sylvain needs: No travel history: recent seatbelt use: always water heater temp set < 120 deg: Yes working smoke detector in home: Yes fire extinguisher in home: Yes carbon monox detector in home: Yes firearms in home: Yes firearms unloaded and locked: Yes do you feel safe at home: Yes (answered w/ present ) Smoking Status: Never smoker second hand exposure: No alcohol intake: former (occasionally when not ) substance use type: does not use during the past year weight has: remained stable well-balanced diet: rarely or never daily servings fruits/ve-1 caffeine: Yes (aware of 200mg limit) Type(s) of exercise: walking duration: 15-30 minutes/day Meds Home Medications and Allergies Home Medications Medication Instructions Recorded Confirmed Type [id number] 400 mcg-om3 35 mg-dha 25 tab PO 10/06/22 05/18/23 History mg-epa 5 mg-fish oil chewable tablet ondansetron 4 mg disintegrating 4 mg PO Q8H PRN nausea and 11/23/22 05/18/23 Rx tablet vomiting #20 tabs Allergies Allergy/AdvReac Type Severity Reaction Status Date / Time No Known Drug Allergies Allergy Verified 05/18/23 16:05 OB Exam Resp Effort & Inspection: normal respiratory effort Auscultation: clear to auscultation bilaterally Cardio Rate: regular rate Rhythm: regular rhythm Heart Sounds: S1 normal, S2 normal and no murmurs GI Inspection: non-distended Palpation: Yes soft and No tender Presentation: vertex Assessment and Plan Assessment and Plan Assessment and Plan narrative: 23yo at 38w6d here in active labor. GBS negative (by patient report), Rh negative. complicated by large subchorionic hemorrhage in the 1st and 2nd trimester, now resolved, in addition to obesity with BMI > 50. Plan had been for the pt to deliver in [place] due to this, however she now presents in active labor with progressive cervical change, therefore transfer is not appropriate. - Expectant management, anticipate - FHT reassuring, okay for intermittent monitoring. Low threshold for internal monitoring in the future. - GBS negative, no prophylaxis -- will attempt to get records - Epidural for pain control when desired - Monitor for need of Lovenox
[2023-05-27] MEDS: fentaNYL 100 MCG/2 ML INJ 50 MCG IV (06:03)
[2023-05-27 06:20] VITALS: BP 116/55
[2023-05-27 07:09] LABS: Add Manual Diff / Slide Review NO; Basophils Absolute Auto 0 /uL (0-100); Basophils Percent Auto 0.2 % (0-2); Eosinophils Absolute Auto 0 /uL (0-450); Eosinophils Percent Auto 0.2 % (2-4); Hematocrit 35.3 % (36-46); Hemoglobin 11.6 g/dL (12.0-16.0); Lymphocytes Absolute Auto 1900 /uL (1100-4500); Lymphocytes Percent Auto 13.1 % (25-40); Mean Corpuscular HGB Conc 32.7 % (30-36); Mean Corpuscular Hemoglobin 28.3 PG (26-34); Mean Corpuscular Volume 86.5 fL (80-100); Monocytes Absolute Auto 700 /uL (0-900); Monocytes Percent Auto 4.9 % (3-14); Neutrophils Absolute Auto 11700 /uL (1500-7000); Neutrophils Percent Auto 81.6 % (50-75); Platelet Count 372 X10^3/uL (150-400); Red Blood Cell Count 4.08 X10^6/uL (4.0-5.2); Red Cell Distribution Width 14.7 % (11.6-14.8); White Blood Cell Count 14.3 X10^3/uL (4.5-11.0)
--- NOTE | 2023-05-27 09:20 | PM.AN.REGBLK ---
Regional Block Pre-procedure Procedure: Continuous Lumbar Epidural for L&D Attending OB provider: Mindy Bowen PS/Anesthesia history narrative: No previous anesthesia Hx ASA Class: III Labs: Hct 35.3 % (36-46) L 05/27/23 06:50 Plt Count 372 X10^3/uL (150-400) 05/27/23 06:50 Medications: Current Medications Generic Name Dose Route Start Last Admin Trade Name Freq PRN Reason Stop Dose Admin Calcium Carbonate 1,000 mg 05/27/23 05:42 Calcium Carbonate 500 Mg Tab PO Q4HR PRN Dyspepsia Carboprost Tromethamine 250 mcg 05/27/23 05:42 Carboprost 250 Mcg/Ml Ampul IM Q90M PRN Bleeding Diphenhydramine HCl 25 mg 05/27/23 09:17 Diphenhydramine 50 Mg/Ml Vial IV Q10M PRN Pruritis Ephedrine Sulfate 10 mg 05/27/23 09:17 Ephedrine 50 Mg/Ml Vial IV Q5M PRN Blood pressure decrease more than 20% of baseline. Fentanyl 50 mcg 05/27/23 05:38 05/27/23 06:03 Fentanyl 100 Mcg/2 Ml Inj IV 50 mcg Q1H PRN Administration Pain, Severe (7-10) Fentanyl 50 mcg 05/27/23 05:42 Fentanyl 100 Mcg/2 Ml Inj IV Q1H PRN Pain, Moderate (4-6) Lactated Ringer's 1,000 mls @ 100 mls/hr 05/27/23 05:45 Lactated Ringers IV CONT LENNY Oxytocin/Lactated Ringer's 30 unit in 500 mls @ 200 mls/hr 05/27/23 05:42 Oxytocin Premix IV CONT PRN Bleeding Protocol Tranexamic Acid 1,000 mg/ 100 mls @ 200 mls/hr 05/27/23 05:42 Sodium Chloride IV NOW PRN Bleeding FENT 2MCG/ML BUPIV 0.125% EPI 200 mcg in 100 mls @ 10 mls/hr 05/27/23 09:30 Fentanyl/Bupiv/Ns 2mcg/Ml - 0.125% EPIDURAL CONT LENNY Lidocaine HCl 20 ml 05/27/23 05:42 Lidocaine 1% 20 Ml INJ INTRA-OP PRN Post Delivery Methylergonovine Maleate 0.2 mg 05/27/23 05:42 Methylergonovine 0.2 Mg Tablet PO Q6HR PRN Heavy Bleeding Methylergonovine Maleate 0.2 mg 05/27/23 05:42 Methylergonovine 0.2 Mg/Ml Vial IM NOW PRN Bleeding Misoprostol 800 mcg 05/27/23 05:42 Misoprostol 200 Mcg Tablet NV NOW PRN Bleeding Misoprostol 400 mcg 05/27/23 05:42 Misoprostol 200 Mcg Tablet SL NOW PRN Bleeding Nalbuphine HCl 2.5 mg 05/27/23 09:17 Nalbuphine 20 Mg/Ml Ampul IV Q10M PRN Pruritis Naloxone HCl 0.2 mg 05/27/23 05:42 Naloxone 0.4 Mg/Ml Vial IV Q2MIN PRN Opiate Reversal Ondansetron HCl 4 mg 05/27/23 05:42 Ondansetron 4 Mg/2 Ml Inj IV Q4HR PRN Nausea And Vomiting Oxytocin 10 unit 05/27/23 05:42 Oxytocin 10 Unit/Ml Vial IM NOW PRN Bleeding Allergies: Allergies Allergy/AdvReac Type Severity Reaction Status Date / Time No Known Drug Allergies Allergy Verified 05/18/23 16:05 Procedure Insertion date: 05/27/23 Insertion time: 08:52 Prep/Local: 1% lidocaine Interspace: L4/5 Patient position: sitting Needle: 18 gauge Genny Loss of resistance with: saline JAME at (cm): 9 Catheter placed at SKIN (cm): 15 Insertion: Yes Paresthesia with insertion Initial Medications TEST DOSE time: 08:54 BOLUS DOSE time: 11:55 BOLUS DOSE (mL): 10 BOLUS DOSE med: other (.125% bupivacaine 10cc + 25 mcg precedex) Infusion Initial rate (mL/hr): 10 Post-procedure Anesthesia date START: 05/27/23 Anesthesia time START: 08:40 Anesthesia date END: 05/27/23 Anesthesia time END: 17:29
[2023-05-27] MEDS: CALCIUM CARBONATE 500 MG TAB 1000 MG PO (09:49)
[2023-05-27] MEDS: LACTATED RINGERS 1,000 ML 100 ML IV ×2 (09:50→14:36)
--- NOTE | 2023-05-27 11:29 | PM.OBPNLAB ---
Date/Time Date Patient Seen: 05/27/23 Pain Control Pain control: epidural Pelvic Exam Dilation (cm): 6 Effacement (%): 100 station: 0 Amniotic membrane status: Ruptured Comments: AROM performed with copious clear fluid present Contractions Monitor mode: Internal Contraction frequency (min): 3 Status status: Category l Heart Rate Baseline: 130 Monitor Accelerations: Present Monitor Decelerations: Absent Monitor Variability: Moderate Assessment and Plan Comments: 23yo at 38w6d here in active labor. GBS negative (by patient report), Rh negative. complicated by large subchorionic hemorrhage in the 1st and 2nd trimester, now resolved, in addition to obesity with BMI > 50. Plan had been for the pt to deliver in [place] due to this, however she now presents in active labor with progressive cervical change, therefore transfer was not appropriate. AROM performed with clear fluid present. IUPC placed for improved contraction monitoring. - Expectant management, anticipate - Epidural in place for pain control
[2023-05-27] MEDS: OXYTOCIN PREMIX 30 UNIT/500 ML PLAST..BAG IV (14:35)
[2023-05-27] MEDS: TRANEXAMIC ACID 1,000 MG in SODIUM CHLORIDE 0.9% 100 ML 200 MG IV (17:38)
[2023-05-27] MEDS: METHYLERGONOVINE 0.2 MG/ML VIAL IM (17:51)
[2023-05-27] MEDS: LIDOCAINE 1% 20 ML INJ (17:52)
--- NOTE | 2023-05-27 18:02 | PM.OBPRVD ---
Labor & Delivery Delivery date: 05/27/23 Cervical ripening method: none Induction method: none Delivery augmentation: rupture of membranes and pitocin Delivery monitor: external FHT and internal uterine Route of delivery: Episiotomy description: None L&D Laceration Description: Perineal - 1st Degree and Labial Quantitative Blood Loss: 1,508 Anesthesia Type: Epidural Complications: hemorrhage Narrative: PROCEDURE: at 38w6d presented in active labor and was admitted to Labor and Delivery. The patient progressed through the 1st stage over 11 hours. AROM occured at 10:58 with clear fluid. Pain was controlled with an epidural. IUPC was placed due to difficulty monitoring contractions. Pitocin was initiated due to the spacing of contractions. The patient progressed through the 2nd stage over 4 hours and delivered a viable female infant with APGARs 7/9 at 17:29 via . The cord was cut and clamped after it stopped pulsating. The placenta delivered with gentle cord traction, and appeared complete. The perineum and vagina were inspected with right labial and 1st degree perineal laceration repaired with 3-O Chromic for hemostasis. The pt had uterine atony after delivery, controlled with pitocin, TXA, Methergine and bimanual massage. Needle and sponge counts were correct.? The vagina was inspected and no items were left in situ. Gracia was doing well with her and her at bedside. PREPROCEDURE DIAGNOSIS: Intrauterine at 38w6d Obeisty GBS negative RH negative POSTPROCEDURE DIAGNOSIS: Intrauterine at 38w6d, delivered Same as preprocedure Baby 1: gender: Female Presentation: vertex Position: Right Occiput Anterior Placenta delivery description: Spontaneous Cord Vessel Description: 3 Vessels and Nuchal Cord score (1 min): 7 score (5 min): 9 weight: 7 lb 15.727 oz Plan for aftercare: Routine care
[2023-05-27] MEDS: IBUPROFEN 600 MG TABLET PO (21:38)
[2023-05-27] MEDS: ACETAMINOPHEN 325 MG TABLET 650 MG PO (21:39)
[2023-05-28] MEDS: ACETAMINOPHEN 325 MG TABLET 650 MG PO ×2 (06:27→12:13)
[2023-05-28] MEDS: IBUPROFEN 600 MG TABLET PO ×2 (06:28→12:13)
[2023-05-28 06:50] LABS: Add Manual Diff / Slide Review NO; Basophils Absolute Auto 100 /uL (0-100); Basophils Percent Auto 0.7 % (0-2); Eosinophils Absolute Auto 0 /uL (0-450); Eosinophils Percent Auto 0.3 % (2-4); Hematocrit 26.7 % (36-46); Lymphocytes Absolute Auto 2200 /uL (1100-4500); Lymphocytes Percent Auto 18.7 % (25-40); Mean Corpuscular HGB Conc 33.8 % (30-36); Mean Corpuscular Hemoglobin 29.3 PG (26-34); Mean Corpuscular Volume 86.5 fL (80-100); Monocytes Absolute Auto 1000 /uL (0-900); Monocytes Percent Auto 8.2 % (3-14); Neutrophils Absolute Auto 8700 /uL (1500-7000); Neutrophils Percent Auto 72.1 % (50-75); Platelet Count 281 X10^3/uL (150-400); Red Blood Cell Count 3.09 X10^6/uL (4.0-5.2); Red Cell Distribution Width 15.1 % (11.6-14.8)
--- NOTE | 2023-05-28 09:03 | PM.OBDS.1 ---
Discharge Providers Provider Date of admission: 05/27/23 02:50 Discharge Date: 05/28/23 Primary care physician: FLORINDA Goodman Consults: 05/28/23 18:07 Consult to Maintenance Services Dispatcher Routine Comment: Discharge provider: Lakeisha Morillo MD Summary Hospital Course Date Patient Seen: 05/28/23 Diagnoses: 38w6d gestation GBS negative Rh negative Obesity hemorrhage Hospital Course: The pt presented in active labor. She received an epidural for pain control. AROM was performed with clear fluid present. Pitocin was initiated due to spacing of contractions. She progressed to complete and had an of a viable baby girl. A right labial and 1st degree perineal laceration were repaired. The pt had significant bleeding due to uterine atony. This was controlled with bimanual massage, TXA, methergine, and usual pitocin. , there were no additional complications. At the time of discharge she was voiding, ambulating, and passing flatus without difficulty. Her lochia was decreasing appropriately. Her pain was well controlled. She was with good latch. She will f/u in 6 weeks for check. Peripartum Data Infant Delivery Method: Natural Vaginal Laceration Description: Perineal - 1st Degree and Labial Episiotomy description: None Procedures: Spontaneous vaginal delivery complications: uterine atony 1: Gender: Female Disposition of : home Time Spent with Patient Time attestation: Total time spent providing and/or coordinating discharge services: Objective Labs 05/28/23 06:36 Labs: Laboratory Results - last 24 hr 05/28/23 06:36 WBC 12.0 H RBC 3.09 L Hgb 9.0 L Hct 26.7 L MCV 86.5 MCH 29.3 MCHC 33.8 RDW 15.1 H Plt Count 281 Neut % (Auto) 72.1 Lymph % (Auto) 18.7 L [place] % (Auto) 8.2 Eos % (Auto) 0.3 L Baso % (Auto) 0.7 Neut # (Auto) 8700 H Lymph # (Auto) 2200 [place] # (Auto) 1000 H Eos # (Auto) 0 Baso # (Auto) 100 Maternal Bleed Negative Exam Narrative Exam Narrative: Gen: NAD, sitting comfortably in bed, appears well CV: RRR, no murmurs Resp: clear to auscultation bilaterally Abd: soft, appropriately tender, fundus firm and below the umbilicus, nondistended Ext: no edema Discharge Plan Discharge Plan Patient Disposition: Home Discharge orders & Medications Prescriptions: New acetaminophen 325 mg Tablet 650 mg PO Q6HR PRN (Reason: Pain, Mild (1-3)) Qty: 30 0RF ferrous sulfate 325 mg (65 mg iron) Tablet 325 mg PO DAILY Qty: 30 0RF docusate sodium 100 mg Capsule 100 mg PO DAILY Qty: 30 0RF ibuprofen 600 mg Tablet 600 mg PO Q6HR PRN (Reason: Pain, Mild (1-3)) Qty: 60 0RF Continued [id number] oil 400 mcg-35 mg -25 mg-5 mg tablet,chewable PO Discontinued ondansetron 4 mg tablet,disintegrating 4 mg PO Q8H PRN (Reason: nausea and vomiting) Qty: 20 0RF Rx Instructions: Take one tab every 8 hours as needed only for nausea and vomiting Follow up/Referrals: Lilo Fink ARNP [Primary Care Provider] - Lakeisha Morillo MD [Physician] - 6 Weeks (Please make an appointment on Monday to see in 6 weeks for check.) Diet/Activity/Treatments Diet: Diet as Tolerated and Regular Skin/Wound/Dressing Care Report to your healthcare provider any signs of infection, such as:: chills, fever, increased pain and unusual drainage Visit Report/Discharge Packet Instructions: DI for Labor and Delivery, Vaginal Stand Alone Forms: Patient Portal/API, Stroke Signs & Symptoms Discharge Data Primary Care Provider: Lilo Fink Discharges patient from system. Discharge Date/Time: 05/28/23 18:30
[2023-05-28] MEDS: FERROUS SULFATE 325 MG TABLET PO (09:14)
[2023-05-28] MEDS: DOCUSATE 100 MG CAPSULE PO (09:14)
[2023-05-28] MEDS: PRENATAL VIT,CALC/IRON/FOLIC 1 TABLET 1 TAB PO (09:14)
[2023-05-28 09:49] VITALS: BP 95/42; PULSE 56; RESP 17; TEMP 36.3
[2023-05-28] MEDS: RHO(D) IMMUNE GLOBULIN 1,500 UNIT SYRINGE 1500 UNIT IM (12:13)
== END 2023-05-28 18:30 | disposition home or self-care (01) | DRG 807 ==
PROVIDERS: Family Medicine; Admitting Provider Student in an Organized Health Care Education/Training Program; Family Provider Pediatrics; PCP Nurse Practitioner; Referring Provider Student in an Organized Health Care Education/Training Program; Visit Provider Student in an Organized Health Care Education/Training Program
DX: O99.214 Obesity complicating childbirth (principal); E66.01 Morbid (severe) obesity due to excess calories; O70.0 First degree perineal laceration during delivery; O72.1 Other immediate postpartum hemorrhage; Z3A.38 38 weeks gestation of pregnancy; Z37.0 Single live birth
CPT/HCPCS: 36415; 59050; 59400; 76815; 85025; 85461; 86850; 86870; 86900; 86901; G0378; G0379; J2210; J2590; J2790; J3010

== ENCOUNTER → 2023-05-30 10:54 | Outpatient (CLI) | payer OTHER, MEDICAID, SELFPAY ==
[2023-05-30 11:53] LABS: Add Manual Diff / Slide Review NO; Basophils Absolute Auto 0 /uL (0-100); Basophils Percent Auto 0.3 % (0-2); Eosinophils Absolute Auto 200 /uL (0-450); Eosinophils Percent Auto 2.4 % (2-4); Hematocrit 25.8 % (36-46); Hemoglobin 8.8 g/dL (12.0-16.0); Lymphocytes Absolute Auto 1900 /uL (1100-4500); Lymphocytes Percent Auto 21.6 % (25-40); Mean Corpuscular HGB Conc 34.2 % (30-36); Mean Corpuscular Hemoglobin 29.5 PG (26-34); Mean Corpuscular Volume 86.2 fL (80-100); Monocytes Absolute Auto 400 /uL (0-900); Monocytes Percent Auto 4.3 % (3-14); Neutrophils Absolute Auto 6200 /uL (1500-7000); Neutrophils Percent Auto 71.4 % (50-75); Platelet Count 365 X10^3/uL (150-400); Red Blood Cell Count 2.99 X10^6/uL (4.0-5.2); Red Cell Distribution Width 14.9 % (11.6-14.8); White Blood Cell Count 8.7 X10^3/uL (4.5-11.0)
== END ==
LOC: LAB 10:55
PROVIDERS: Family Provider Pediatrics; PCP Nurse Practitioner; Referring Provider Family Medicine; Visit Provider Family Medicine
DX: D64.9 Anemia, unspecified (principal)
CPT/HCPCS: 36415; 85025

== ENCOUNTER 2023-06-03 08:55 | Emergency (ER) | payer OTHER, MEDICAID, SELFPAY ==
[2023-06-03] VITALS (7 sets, daily range): BP systolic 117; BP diastolic 62; PULSE 114–144; RESP 14–26; TEMP 36.7–36.9; O2SAT 95–96; BMI 55.7
--- NOTE | 2023-06-03 09:39 | ED.RECABL ---
HPI - Recheck/Abnormal Lab/Rx General Chief Complaint: Recheck/Abnormal Lab/Rx Stated Complaint: shakey/ chills, 1 week post Time Seen by Provider: 06/03/23 09:03 Source: patient Mode of arrival: Ambulatory History of Present Illness HPI narrative: Patient is a 23-year-old female who is 1 week from an uncomplicated vaginal delivery. Per patient's report did lose quite a bit of blood during the delivery but received no blood transfusion. Is . When she returned to the hospital for the child's 2 day visit she stated that she had a couple episodes of being lightheaded, shaky and generally not feeling very well. She felt well in between the episodes. States last night she had sweats while lying in bed. This morning she woke up with chills as well. She denies chest pain. No shortness of breath. No sinus congestion, sore throat, headache. No breast tenderness past what she would expect for . She states that her vaginal bleeding is improving. She has no lower abdominal tenderness. No back pain. She did have an epidural. No other skin rashes. Related Data Home Medications Medication Instructions Recorded Confirmed [id number] 400 mcg-om3 35 mg-dha 25 tab PO 10/06/22 05/18/23 mg-epa 5 mg-fish oil chewable tablet Previous Rx's Medication Instructions Recorded acetaminophen 325 mg tablet 650 mg (2 x 325 mg) PO Q6HR PRN 05/28/23 Pain, Mild (1-3) #30 tabs docusate sodium 100 mg capsule 100 mg PO DAILY #30 caps 05/28/23 ferrous sulfate 325 mg (65 mg 325 mg PO DAILY #30 tabs 05/28/23 iron) tablet ibuprofen 600 mg tablet 600 mg PO Q6HR PRN Pain, Mild 05/28/23 (1-3) #60 tabs Allergies Allergy/AdvReac Type Severity Reaction Status Date / Time No Known Drug Allergies Allergy Verified 05/18/23 16:05 Review of Systems Review of Systems Narrative: See HPI Patient History Medical History PTSD (post-traumatic stress disorder) (~2012) Depression (~2012) Bipolar disorder (~2021) Asthma Healthy adult Surgical History No pertinent past surgical history Family History Father Depression Anxiety PTSD (post-traumatic stress disorder) Mother Mental health disorder Diabetes mellitus Anxiety Depression Bipolar disorder PIH ( induced hypertension) Grandmother Breast cancer Social History marital status: number of children: 0 household members: spouse and family (grandfather) lives independently: Yes caregiver/support person: No housing: house (manufactured home) pets and animals: Yes (grandfather's cat, she doesn't deal w/ litter box) education level: college (student) 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) special sylvain needs: No travel history: recent seatbelt use: always water heater temp set < 120 deg: Yes working smoke detector in home: Yes fire extinguisher in home: Yes carbon monox detector in home: Yes firearms in home: Yes firearms unloaded and locked: Yes do you feel safe at home: Yes (answered w/ present ) Smoking Status: Never smoker second hand exposure: No alcohol intake: former (occasionally when not ) substance use type: does not use during the past year weight has: remained stable well-balanced diet: rarely or never daily servings fruits/ve-1 caffeine: Yes (aware of 200mg limit) Type(s) of exercise: walking duration: 15-30 minutes/day Smoking Status: Never smoker Substance Use Type: does not use Exam Initial Vital Signs Initial Vital Signs: Vital Signs Pulse Rate 144 H 06/03/23 09:25 Pulse Oximetry 95 06/03/23 09:25 Const General: cooperative, comfortable and No ill appearing HENMT Head: normal to inspection and normocephalic Resp Effort & Inspection: normal respiratory effort Auscultation: clear to auscultation bilaterally Cardio Rate: regular rate Rhythm: regular rhythm GI Inspection: non-distended Skin General: no rashes or lesions noted Neuro General: patient alert, patient awake and moves all extremities Extrem General: normal to inspection and capillary refill normal Course Orders Ordered: ED Orders 06/03/23 09:50 Complete Blood Count AUTO DIFF Stat Comprehensive Metabolic Panel Stat Lipase Stat 06/03/23 09:54 Covid-19 + FLU A/B + RSV - PCR Stat 06/03/23 11:32 EKG-12 Lead Stat Discontinued Medications Sodium Chloride (Normal Saline 0.9%) 1,000 mls @ 1,000 mls/hr IV BOLUS ONE Stop: 06/03/23 11:06 Last Admin: 06/03/23 10:42 Dose: 1,000 mls/hr Documented By: LEATHA Sodium Chloride (Normal Saline 0.9%) 1,000 mls @ 1,000 mls/hr IV BOLUS ONE Stop: 06/03/23 12:32 Last Admin: 06/03/23 11:53 Dose: 1,000 mls/hr Documented By: LEATHA Vital Signs Vital signs: Vital Signs - 8 hr 06/03/23 09:25 06/03/23 09:27 06/03/23 09:42 Temperature 98.5 F Pulse Rate 144 H 135 H Respiratory Rate 26 H Blood Pressure 117/62 Pulse Oximetry 95 96 96 Oxygen Delivery Method Room Air 06/03/23 10:00 06/03/23 10:30 06/03/23 11:00 Temperature Pulse Rate 131 H 120 H 114 H Respiratory Rate 14 Blood Pressure Pulse Oximetry 96 95 95 Oxygen Delivery Method MDM - Recheck/Abnormal Lab/Rx Medical Records Attestation: I reviewed the patient's medical records. Lab Data Attestation: I reviewed the patient's lab results. 06/03/23 09:50 06/03/23 09:50 Labs: Lab Results 06/03/23 06/03/23 Range/Units 09:50 09:54 WBC 8.6 (4.5-11.0) X10^3/uL RBC 3.35 L (4.0-5.2) X10^6/uL Hgb 9.7 L (12.0-16.0) g/dL Hct 28.8 L (36-46) % MCV 86.0 (80-100) fL MCH 29.1 (26-34) PG MCHC 33.8 (30-36) % RDW 15.2 H (11.6-14.8) % Plt Count 433 H (150-400) X10^3/uL Neut % (Auto) 93.2 H (50-75) % Lymph % (Auto) 3.5 L (25-40) % Petroleum % (Auto) 2.6 L (3-14) % Eos % (Auto) 0.5 L (2-4) % Baso % (Auto) 0.2 (0-2) % Neut # (Auto) 8000 H (8878-0600) /uL Lymph # (Auto) 300 L (3433-1389) /uL Petroleum # (Auto) 200 (0-900) /uL Eos # (Auto) 0 (0-450) /uL Baso # (Auto) 0 (0-100) /uL Sodium 135 L (137-145) mmol/L Potassium 4.1 (3.4-5.1) mmol/L Chloride 107 (98-107) mmol/L Carbon Dioxide 22 (22-32) mmol/L BUN 9 (7-17) mg/dL Creatinine 0.71 (0.52-1.04) mg/dL Estimated GFR > 60 (>60) mL/min BUN/Creatinine Ratio 12.7 (6-22) Glucose 126 H (70-100) mg/dL Calcium 8.2 L (8.4-10.2) mg/dL Total Bilirubin 0.9 (0.2-1.3) mg/dL AST 33 (14-36) IU/L ALT 19 (<35) IU/L Alkaline Phosphatase 99 (38-126) U/L Total Protein 6.9 (6.3-8.2) g/dL Albumin 3.7 (3.5-5.0) g/dL Globulin 3.2 (1.7-4.1) g/dL Albumin/Globulin Ratio 1.2 (1.0-2.8) Lipase 23 (23-300) U/L SARS-CoV-2 (PCR) Negative (Negative) Influenza A (RT-PCR) Flu a negative (NEGATIVE) Influenza B (RT-PCR) Flu b negative (NEGATIVE) RSV (PCR) Negative (Negative) ECG Data Attestation: I personally reviewed and interpreted this ECG as follows: Interpretation: Sinus tachycardia Ventricular rate 107 Normal axis Normal QRS Normal QTC No ST T wave changes MDM Narrative Medical decision making narrative: Patient appears well. Has been persistently tachycardic since arrival here in the emergency department however it has improved with fluids. She has not hypoxic. She ambulated without becoming lightheaded. Is tolerating oral intake. Her H&H is unremarkable. Rest of her electrolytes are unremarkable. She was . There was no other signs of infection. Low suspicion for pneumonia. No lower abdominal discomfort concerning for endometritis. No back discomfort. Plan will be to discharge patient home with instructions to contact her primary doctor and also her OB doctor she may require a Holter monitor at some point in the future to see whether or not her dizziness is related to her tachycardia. This also could be explained because of her recent delivery. She was given return precautions. She expressed understanding and agreement. Discharge Plan Departure Patient Disposition: Home Clinical Impression: Tachycardia, Lightheadedness Activity Restrictions/Additional Instructions: Continue to take all medications as directed. Be sure that you are increasing your fluid intake and eating a balanced diet. You can continue to breastfeed like normal. Contact your primary doctor for a follow-up to discuss the indications for a Holter monitor. Return to the emergency department for new or worsening symptoms. Prescriptions: No Action [id number] oil 400 mcg-35 mg -25 mg-5 mg tablet,chewable PO acetaminophen 325 mg Tablet 650 mg PO Q6HR PRN (Reason: Pain, Mild (1-3)) Qty: 30 0RF ferrous sulfate 325 mg (65 mg iron) Tablet 325 mg PO DAILY Qty: 30 0RF docusate sodium 100 mg Capsule 100 mg PO DAILY Qty: 30 0RF ibuprofen 600 mg Tablet 600 mg PO Q6HR PRN (Reason: Pain, Mild (1-3)) Qty: 60 0RF Referrals: Lilo Fink ARNP [Primary Care Provider] - Stand Alone Forms: Patient Portal/API
[2023-06-03 09:58] LABS: Add Manual Diff / Slide Review NO; Basophils Absolute Auto 0 /uL (0-100); Basophils Percent Auto 0.2 % (0-2); Eosinophils Absolute Auto 0 /uL (0-450); Eosinophils Percent Auto 0.5 % (2-4); Hematocrit 28.8 % (36-46); Hemoglobin 9.7 g/dL (12.0-16.0); Lymphocytes Absolute Auto 300 /uL (1100-4500); Lymphocytes Percent Auto 3.5 % (25-40); Mean Corpuscular HGB Conc 33.8 % (30-36); Mean Corpuscular Hemoglobin 29.1 PG (26-34); Monocytes Absolute Auto 200 /uL (0-900); Monocytes Percent Auto 2.6 % (3-14); Neutrophils Absolute Auto 8000 /uL (1500-7000); Neutrophils Percent Auto 93.2 % (50-75); Platelet Count 433 X10^3/uL (150-400); Red Blood Cell Count 3.35 X10^6/uL (4.0-5.2); Red Cell Distribution Width 15.2 % (11.6-14.8); White Blood Cell Count 8.6 X10^3/uL (4.5-11.0)
--- NOTE | 2023-06-03 10:02 | PC.NURSE ---
Pt states her hgb dropped after giving and has since felt sob, heart racing, and weak.
[2023-06-03 10:12] LABS: Alanine Aminotransferase 19 IU/L (<35); Albumin 3.7 g/dL (3.5-5.0); Albumin Globulin Ratio 1.2 (1.0-2.8); Alkaline Phosphatase 99 U/L (38-126); Aspartate Aminotransferase 33 IU/L (14-36); BUN Creatinine Ratio 12.7 (6-22); Bilirubin Total 0.9 mg/dL (0.2-1.3); Blood Urea Nitrogen 9 mg/dL (7-17); Calcium 8.2 mg/dL (8.4-10.2); Carbon Dioxide 22 mmol/L (22-32); Chloride 107 mmol/L (98-107); Estimated Glomerular Filt Rate > 60 mL/min (>60); Globulin 3.2 g/dL (1.7-4.1); Glucose 126 mg/dL (70-100); HEMOLYSIS 69 (0-50); Lipase 23 U/L (23-300); Potassium 4.1 mmol/L (3.4-5.1); Sodium 135 mmol/L (137-145); Total Protein 6.9 g/dL (6.3-8.2)
[2023-06-03 10:42] LABS: Influenza A - CEPHEID Flu A NEGATIVE (NEGATIVE); Influenza B - CEPHEID Flu B NEGATIVE (NEGATIVE); Respiratory Syncytial Virus Negative (Negative)
[2023-06-03] MEDS: SODIUM CHLORIDE 0.9% 1,000 ML 1000 ML IV ×2 (10:42→11:53)
[2023-06-03 10:47] LABS: COVID-19 CEPHEID 4-PLEX PCR Negative (Negative)
== END 2023-06-03 14:36 | disposition home or self-care (01) ==
PROVIDERS: Emergency Provider Emergency Medicine; Family Provider Pediatrics; PCP Nurse Practitioner
DX: R00.0 Tachycardia, unspecified (principal); R42 Dizziness and giddiness; Z20.822 Contact with and (suspected) exposure to COVID-19
CPT/HCPCS: 0241U; 36415; 80053; 83690; 85025; 93005; 96360; 96361; 99284

== ENCOUNTER → 2023-08-08 15:42 | Outpatient (CLI) | payer OTHER, MEDICAID, SELFPAY ==
[2023-08-08 17:17] LABS: Urine N gonorrhoeae NOT DETECTED
[2023-08-08 17:25] LABS: Urine Chlamydia NOT DETECTED
== END ==
PROVIDERS: Family Provider Pediatrics; PCP Nurse Practitioner; Visit Provider Family Medicine
DX: Z30.430 Encounter for insertion of intrauterine contraceptive device (principal)
CPT/HCPCS: 87491; 87591

== ENCOUNTER 2023-08-19 17:42 | Emergency (ER) | payer OTHER, MEDICAID, SELFPAY ==
[2023-08-19 18:11] VITALS: BP 153/75; PULSE 80; RESP 17; TEMP 36.6; O2SAT 98; BMI 52.5
--- NOTE | 2023-08-19 18:17 | ED.BACK ---
HPI - Back Pain/Injury <Juan Riojas PA-C - Last Filed: 08/19/23 18:35> General Chief Complaint: Back Pain/Injury Stated Complaint: severe lower back pain t-3 Time Seen by Provider: 08/19/23 18:17 Source: patient History of Present Illness HPI Narrative: This is a 23-year-old female presents emergency department due to acute onset lower back pain onset 3 days ago. Patient states that she was feeding her child in abnormal position and soon after noticed some dull aching lower back pain that radiated from her lumbar. She denies any bowel, or urinary incontinence, saddle paresthesias, significant weakness in her lower extremities, or any other concerning signs or symptoms. States that the back pain occasionally mildly radiates up to her midthoracic area. Related Data Home Medications Medication Instructions Recorded Confirmed [id number] 400 mcg-om3 35 mg-dha 25 tab PO 10/06/22 08/08/23 mg-epa 5 mg-fish oil chewable tablet levonorgestrel 21 mcg/24 hours (8 intrauterine 08/19/23 yrs) 52 mg intrauterine device (Mirena) Previous Rx's Medication Instructions Recorded acetaminophen 325 mg tablet 650 mg (2 x 325 mg) PO Q6HR PRN 05/28/23 Pain, Mild (1-3) #30 tabs docusate sodium 100 mg capsule 100 mg PO DAILY #30 caps 05/28/23 ferrous sulfate 325 mg (65 mg 325 mg PO DAILY #30 tabs 05/28/23 iron) tablet ibuprofen 600 mg tablet 600 mg PO Q6HR PRN Pain, Mild 05/28/23 (1-3) #60 tabs cyclobenzaprine 10 mg tablet 10 mg PO TID PRN muscle spasm #30 08/19/23 tabs Allergies Allergy/AdvReac Type Severity Reaction Status Date / Time No Known Drug Allergies Allergy Verified 08/19/23 18:15 Review of Systems <Juan Riojas PA-C - Last Filed: 08/19/23 18:35> Review of Systems Narrative: GENERAL: Denies chills, fatigue, malaise, fever, sweats. HEENT: Denies sinus pain, ear pain, sore throat, difficulty swallowing, dizziness. RESPIRATORY: Denies dyspnea, cough, wheezing, hemoptysis, sputum. CARDIOVASCULAR: Denies chest pain, palpitations, orthopnea, edema, GASTROINTESTINAL: Denies nausea, vomiting, abdominal pain, diarrhea, constipation, melena. : Denies dysuria, frequency, incontinence, hematuria, urinary retention. MUSCULOSKELETAL: Reports lumbar back pain denies weakness, joint pain, or bony pain SKIN: Denies rash, skin lesions, or other NEUROLOGIC: Denies weakness, headache, numbness, change in speech, confusion, seizures, incoordination. PSYCHIATRIC: No concerning psychosocial issues. 12 point review of systems is negative except for those stated above Patient History <Juan Riojas PA-C - Last Filed: 08/19/23 18:35> Medical History PTSD (post-traumatic stress disorder) (~2012) Depression (~2012) Bipolar disorder (~2021) Asthma Healthy adult Surgical History No pertinent past surgical history Family History Father Depression Anxiety PTSD (post-traumatic stress disorder) Mother Mental health disorder Diabetes mellitus Anxiety Depression Bipolar disorder PIH ( induced hypertension) Grandmother Breast cancer Social History marital status: number of children: 0 household members: spouse and family lives independently: Yes caregiver/support person: No housing: house pets and animals: Yes (grandfather's cat, she doesn't deal w/ litter box) education level: college occupational status: employed 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) special sylvain needs: No travel history: recent seatbelt use: always water heater temp set < 120 deg: Yes working smoke detector in home: Yes fire extinguisher in home: Yes carbon monox detector in home: Yes firearms in home: Yes firearms unloaded and locked: Yes do you feel safe at home: Yes (answered w/ present ) Smoking Status: Never smoker second hand exposure: No alcohol intake: former substance use type: does not use during the past year weight has: remained stable well-balanced diet: rarely or never daily servings fruits/ve-1 caffeine: Yes (aware of 200mg limit) Type(s) of exercise: walking duration: 15-30 minutes/day Smoking Status: Never smoker alcohol intake frequency: other Substance Use Type: does not use Exam <TORO Mtz Last Filed: 08/19/23 18:35> Narrative Exam Narrative: GENERAL: Well-developed patient, in mild distress. HEAD: Atraumatic. Normocephalic. EYES: Pupils equal round and reactive. Extraocular motions intact. No scleral icterus. No injection or drainage. ENT: Nose without bleeding, purulent drainage. Throat without erythema, tonsillar hypertrophy or exudate. Airway patent. NECK: Trachea midline. Non tender EXTREMITIES: No edema or joint tenderness. NEURO: AOx3. SKIN: No rash or erythema of visible areas Back: Mild tenderness to palpation to lumbar paraspinal muscles Initial Vital Signs Initial Vital Signs: Vital Signs Temperature 98 F 08/19/23 18:11 Pulse Rate 80 08/19/23 18:11 Respiratory Rate 17 08/19/23 18:11 Blood Pressure 153/75 H 08/19/23 18:11 Pulse Oximetry 98 08/19/23 18:11 Oxygen Delivery Method Room Air 08/19/23 18:11 <Alessandra Bender DO - Last Filed: 08/19/23 19:11> Initial Vital Signs Initial Vital Signs: Vital Signs Temperature 98 F 08/19/23 18:11 Pulse Rate 80 08/19/23 18:11 Respiratory Rate 17 08/19/23 18:11 Blood Pressure 153/75 H 08/19/23 18:11 Pulse Oximetry 98 08/19/23 18:11 Oxygen Delivery Method Room Air 08/19/23 18:11 Course <Juan Riojas PA-C - Last Filed: 08/19/23 18:35> Orders Ordered: Discontinued Medications Ketorolac Tromethamine (Ketorolac 30 Mg/Ml Vial) 15 mg IM NOW ONE Stop: 08/19/23 18:28 Last Admin: 08/19/23 18:43 Dose: 15 mg Documented By: JACK Vital Signs Vital signs: Vital Signs - 8 hr 08/19/23 18:11 Temperature 98 F Pulse Rate 80 Respiratory Rate 17 Blood Pressure 153/75 H Pulse Oximetry 98 Oxygen Delivery Method Room Air <Alessandra Bender DO - Last Filed: 08/19/23 19:11> Orders Ordered: Discontinued Medications Ketorolac Tromethamine (Ketorolac 30 Mg/Ml Vial) 15 mg IM NOW ONE Stop: 08/19/23 18:28 Last Admin: 08/19/23 18:43 Dose: 15 mg Documented By: JACK Vital Signs Vital signs: Vital Signs - 8 hr 08/19/23 18:11 Temperature 98 F Pulse Rate 80 Respiratory Rate 17 Blood Pressure 153/75 H Pulse Oximetry 98 Oxygen Delivery Method Room Air MDM - Back Pain/Injury <Juan Riojas PA-C - Last Filed: 08/19/23 18:35> MDM Narrative Medical decision making narrative: ED course: This is a 23-year-old female presents to the emergency department due to suspected lumbosacral strain. She was not presenting with any concerning red flag symptoms such as saddle paresthesias, urinary or bowel incontinence, weakness, or any other concerning signs or symptoms. We will give him Toradol bolus prescription for muscle relaxants. CC: Lumbar pain Complicating co-morbidities: None Data collected from: Previous notes Medical records reviewed: Patient was last seen 3 months ago due to feeling shaky. History of PTSD, depression, bipolar disorder. Recently had a child through via an uncomplicated vaginal delivery. Differential considered, but not limited to: Lumbosacral strain, spinal cord injury, fracture Exam documented above, pertinent findings include: Lumbar paraspinal tenderness to palpation Lab Test results independently reviewed as above. Pertinent findings: None obtained Imaging studies independently reviewed: None obtained Scores Used: None MIPS Elements: None Consultations: None Treatments: IM Toradol Re-evaluations: None Discussion: Discussed plan with the patient was comfortable with the plan Diagnosis: Lumbosacral strain Disposition: see below, along with detailed discharge instructions that have been reviewed with patient as well as indications for ED re-evaluation and additional outpatient follow up Discharge Plan Departure Patient Disposition: Home Clinical Impression: Strain of lumbar region Activity Restrictions/Additional Instructions: Thank you for coming to the [facility] Emergency Department today. As we discussed suspect this is muscular in nature. The Toradol should help as well as a muscle relaxant prescribed. Please be careful taking these as they may make you feel a bit ?woozy?. Please take before driving or operating heavy machinery. Please return to the emergency department if you develop any numbness in her legs, urinary bowel incontinence, or any other concerning signs or symptoms. I hope you feel better soon. Please follow up with your primary care provider within a week if your symptoms continue. If you do not have a primary care provider please contact the [facility] Resource line at [phone]. They will ask some questions about your medical history and help you get set up with a provider in the community. Prescriptions: New cyclobenzaprine 10 mg tablet 10 mg PO TID PRN (Reason: muscle spasm) Qty: 30 0RF No Action [id number] oil 400 mcg-35 mg -25 mg-5 mg tablet,chewable PO acetaminophen 325 mg Tablet 650 mg PO Q6HR PRN (Reason: Pain, Mild (1-3)) Qty: 30 0RF ferrous sulfate 325 mg (65 mg iron) Tablet 325 mg PO DAILY Qty: 30 0RF docusate sodium 100 mg Capsule 100 mg PO DAILY Qty: 30 0RF ibuprofen 600 mg Tablet 600 mg PO Q6HR PRN (Reason: Pain, Mild (1-3)) Qty: 60 0RF Mirena 21 mcg/24 hours (8 yrs) 52 mg Intrauterine Device INTRAUTERINE Referrals: Lilo Fink ARNP [Primary Care Provider] - Stand Alone Forms: Patient Portal/API ED Sign-out <Alessandra Bender DO - Last Filed: 08/19/23 19:11> Cosign ED Attending David Attestation: I was immediately available in the department for consultation.
[2023-08-19] MEDS: KETOROLAC 30 MG/ML VIAL 15 MG IM (18:43)
== END 2023-08-19 18:55 | disposition home or self-care (01) ==
PROVIDERS: Emergency Provider Physician Assistant Medical; Family Provider Pediatrics; PCP Nurse Practitioner
DX: S39.012A Strain of muscle, fascia and tendon of lower back, initial encounter (principal); X50.1XXA Overexertion from prolonged static or awkward postures, initial encounter
CPT/HCPCS: 96372; 99283; J1885

== ENCOUNTER 2023-11-19 11:51 | Emergency (ER) | payer OTHER, MEDICAID, SELFPAY ==
[2023-11-19 11:56] VITALS: BP 138/80; PULSE 85; RESP 17; TEMP 36.2; O2SAT 100; BMI 54.1
--- NOTE | 2023-11-19 12:14 | EKG_ITS ---
[facility] [address] [place] [id number] Test Date: 2023-11-19 Pat Name: Gracia Manzano Department: [facility] Room: Gender: Female It Applications Manager: DELILAH : 2000 Requested By: Order Number: [id number] Reading MD: Elias Caballero MD Measurements Intervals [place] Rate: 73 P: 30 NM: 168 QRS: -10 QRSD: 82 T: 6 QT: 372 QTc: 409 Interpretive Statements Normal sinus rhythm with sinus arrhythmia Electronically Signed On 11-19-2023 12:43:32 PDT by Elias Caballero MD
--- NOTE | 2023-11-19 12:42 | PC.NURSE ---
Patient states that the palpitations began on monday, on monday they got particularly bad and the patient states that she felt numb all over and almost blacked out. Patient has no cardiac hx, takes no daily medications, is currently having no chest pain, n/v. patient reports having significant life stress
--- NOTE | 2023-11-19 13:02 | DI.RAD.S_ITS ---
PROCEDURE: XR CHEST 1V INDICATIONS: chest pain TECHNIQUE: One view of the chest was acquired. COMPARISON: None. FINDINGS: Surgical changes and devices: None. Lungs and pleura: Lungs are clear. No pleural effusions or pneumothorax. Mediastinum: Mediastinal contours appear normal. Heart size is normal. Bones and chest wall: No suspicious bony lesions. Overlying soft tissues appear unremarkable. IMPRESSION: No acute cardiopulmonary abnormality is seen. Approved by: Grant Boss M.D. on 11/19/2023 at 13:03
[2023-11-19 13:30] LABS: Add Manual Diff / Slide Review NO; Basophils Absolute Auto 100 /uL (0-100); Basophils Percent Auto 0.8 % (0-2); Eosinophils Absolute Auto 100 /uL (0-450); Eosinophils Percent Auto 0.6 % (2-4); Hematocrit 38.6 % (36-46); Hemoglobin 12.8 g/dL (12.0-16.0); Lymphocytes Absolute Auto 2200 /uL (1100-4500); Lymphocytes Percent Auto 21.1 % (25-40); Mean Corpuscular HGB Conc 33.1 % (30-36); Mean Corpuscular Volume 75.4 fL (80-100); Monocytes Absolute Auto 500 /uL (0-900); Monocytes Percent Auto 5.3 % (3-14); Neutrophils Absolute Auto 7400 /uL (1500-7000); Neutrophils Percent Auto 72.2 % (50-75); Platelet Count 477 X10^3/uL (150-400); Red Blood Cell Count 5.13 X10^6/uL (4.0-5.2); Red Cell Distribution Width 17.6 % (11.6-14.8); White Blood Cell Count 10.2 X10^3/uL (4.5-11.0)
[2023-11-19 13:37] LABS: INR 1.1 (0.9-1.3); Prothrombin Time 12.5 SECONDS (9.4-12.5)
[2023-11-19 13:40] LABS: PTT Partial Thromboplastin Tim 35 SECONDS (25.1-36.5)
[2023-11-19 13:41] LABS: Alanine Aminotransferase 15 IU/L (<35); Albumin 4.4 g/dL (3.5-5.0); Albumin Globulin Ratio 1.3 (1.0-2.8); Alkaline Phosphatase 123 U/L (38-126); Aspartate Aminotransferase 20 IU/L (14-36); BUN Creatinine Ratio 18.6 (6-22); Bilirubin Total 0.5 mg/dL (0.2-1.3); Blood Urea Nitrogen 13 mg/dL (7-17); Calcium 9.2 mg/dL (8.4-10.2); Carbon Dioxide 25 mmol/L (22-32); Chloride 104 mmol/L (98-107); Creatine Kinase 81 U/L (30-135); Estimated Glomerular Filt Rate > 60 mL/min (>60); Globulin 3.3 g/dL (1.7-4.1); Glucose 101 mg/dL (70-100); HEMOLYSIS < 15 (0-50); Lipase 65 U/L (23-300); Magnesium 1.8 mg/dL (1.6-2.3); Sodium 138 mmol/L (137-145); Total Protein 7.7 g/dL (6.3-8.2)
[2023-11-19 13:53] LABS: NT-proBNP (BNP-Adult 18+) 22 pg/mL (<125); Troponin I < 0.012 ng/mL (0.01-0.034)
[2023-11-19 14:11] LABS: TSH w/ Reflex to FT4 0.66 uIU/mL (0.47-4.68)
--- NOTE | 2023-11-19 14:23 | ED.ARRPALP ---
HPI - Arrhythmia/Palpitations General Chief Complaint: Arrhythmia/Palpitations Stated Complaint: HEART PALPITATATIONS Time Seen by Provider: 11/19/23 14:23 Source: patient Mode of arrival: Family Vehicle History of Present Illness HPI narrative: Patient 23-year-old currently breast-feeding her 6-month-old presents today with her palpitations and near syncopal episode. She reports that she was sitting on the toilet urinating which he felt her heart beating and palpating the felt like she almost passed out but she did not. She has intermittently heart palpitations. No significant shortness of breath. She has an IUD Mirena in no miscarriages no recent travel no prior history blood clots. She has been feeling well she has not having any sort of upper respiratory like symptoms. Related Data Home Medications Medication Instructions Recorded Confirmed [id number] 400 mcg-om3 35 mg-dha 25 tab PO 10/06/22 09/13/23 mg-epa 5 mg-fish oil chewable tablet levonorgestrel 21 mcg/24 hr (up to intrauterine 08/19/23 09/13/23 8 years) 52 mg intrauterine device (Mirena) Previous Rx's Medication Instructions Recorded acetaminophen 325 mg tablet 650 mg (2 x 325 mg) PO Q6HR PRN 05/28/23 Pain, Mild (1-3) #30 tabs docusate sodium 100 mg capsule 100 mg PO DAILY #30 caps 05/28/23 ferrous sulfate 325 mg (65 mg 325 mg PO DAILY #30 tabs 05/28/23 iron) tablet ibuprofen 600 mg tablet 600 mg PO Q6HR PRN Pain, Mild 05/28/23 (1-3) #60 tabs cyclobenzaprine 10 mg tablet 10 mg PO TID PRN muscle spasm #30 08/19/23 tabs Allergies Allergy/AdvReac Type Severity Reaction Status Date / Time No Known Drug Allergies Allergy Verified 11/19/23 12:01 Patient History Medical History PTSD (post-traumatic stress disorder) (~2012) Depression (~2012) Bipolar disorder (~2021) Asthma Healthy adult Surgical History No pertinent past surgical history Family History Father Depression Anxiety PTSD (post-traumatic stress disorder) Mother Mental health disorder Diabetes mellitus Anxiety Depression Bipolar disorder PIH ( induced hypertension) Grandmother Breast cancer Social History marital status: number of children: 0 household members: spouse and family lives independently: Yes caregiver/support person: No housing: house pets and animals: Yes (grandfather's cat, she doesn't deal w/ litter box) education level: college occupational status: employed 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) special sylvain needs: No travel history: recent seatbelt use: always water heater temp set < 120 deg: Yes working smoke detector in home: Yes fire extinguisher in home: Yes carbon monox detector in home: Yes firearms in home: Yes firearms unloaded and locked: Yes do you feel safe at home: Yes (answered w/ present ) Smoking Status: Never smoker second hand exposure: No alcohol intake: former substance use type: does not use during the past year weight has: remained stable well-balanced diet: rarely or never daily servings fruits/ve-1 caffeine: Yes (aware of 200mg limit) Type(s) of exercise: walking duration: 15-30 minutes/day Smoking Status: Never smoker alcohol intake frequency: other Substance Use Type: does not use Exam Initial Vital Signs Initial Vital Signs: Vital Signs Temperature 97.2 F L 11/19/23 11:56 Pulse Rate 85 11/19/23 11:56 Respiratory Rate 17 11/19/23 11:56 Blood Pressure 138/80 11/19/23 11:56 Pulse Oximetry 100 11/19/23 11:56 Oxygen Delivery Method Room Air 11/19/23 11:56 GENERAL: Alert 23-year-old female and in no acute distress. HEENT: Head atraumatic,EOMI, pupils reactive, face symmetric, moist mucous membranes CARDIOVASCULAR: Regular rate and rhythm without murmurs, rubs or gallops. RESPIRATORY: Breath sounds equal bilaterally, no wheezes rales or rhonchi. ABDOMEN: Soft, nontender. Normoactive bowel sounds all 4 quadrants. No guarding or rebound. EXTREMITIES: Normal range of motion, no clubbing or edema. Neurovascularly intact NEUROLOGICAL: Alert and oriented x4.Normal gait and speech. SKIN: Warm, dry, no laceration, no petechiae, no rashes or lesions. Scores GCS [place] coma scale eye opening: Spontaneous [place] coma scale verbal response: Orientated Sam[place] coma scale motor response: Obey commands [place] coma scale total score: 15 PERC Score Age greater than or equal to 50 years: No Heart rate greater than or equal to 100 bpm: No Room Air O2 Sat less than 95%: No Unilateral leg swelling: No Recent trauma or surgery: No Hemoptysis: No Prior PE or DVT: No Hormone Use: Yes Total PERC Score: 1 Course Orders Ordered: ED Orders 11/19/23 12:02 EKG-12 Lead Stat 11/19/23 13:02 XR chest 1V Stat EKG-12 Lead Stat 11/19/23 13:18 Complete Blood Count AUTO DIFF Stat Comprehensive Metabolic Panel Stat Lipase Stat Magnesium Stat NT-proBNP (BNP-Adult 18+) Stat PTT Partial Thromboplastin Silas Stat Prothrombin Time INR Stat TSH w/ Reflex to FT4 Stat Troponin & CK Cardiac Panel Stat Vital Signs Vital signs: Vital Signs - 8 hr 11/19/23 11:56 Temperature 97.2 F L Pulse Rate 85 Respiratory Rate 17 Blood Pressure 138/80 Pulse Oximetry 100 Oxygen Delivery Method Room Air MDM - Arrhythmia/Palpitations Lab Data 11/19/23 13:18 11/19/23 13:18 Labs: Lab Results 11/19/23 Range/Units 13:18 WBC 10.2 (4.5-11.0) X10^3/uL RBC 5.13 (4.0-5.2) X10^6/uL Hgb 12.8 (12.0-16.0) g/dL Hct 38.6 (36-46) % MCV 75.4 L (80-100) fL MCH 25.0 L (26-34) PG MCHC 33.1 (30-36) % RDW 17.6 H (11.6-14.8) % Plt Count 477 H (150-400) X10^3/uL Neut % (Auto) 72.2 (50-75) % Lymph % (Auto) 21.1 L (25-40) % Lea % (Auto) 5.3 (3-14) % Eos % (Auto) 0.6 L (2-4) % Baso % (Auto) 0.8 (0-2) % Neut # (Auto) 7400 H (9962-4999) /uL Lymph # (Auto) 2200 (4710-1332) /uL Lea # (Auto) 500 (0-900) /uL Eos # (Auto) 100 (0-450) /uL Baso # (Auto) 100 (0-100) /uL PT 12.5 (9.4-12.5) SECONDS INR 1.1 (0.9-1.3) APTT 35 (25.1-36.5) SECONDS Sodium 138 (137-145) mmol/L Potassium 4.0 (3.4-5.1) mmol/L Chloride 104 (98-107) mmol/L Carbon Dioxide 25 (22-32) mmol/L BUN 13 (7-17) mg/dL Creatinine 0.70 (0.52-1.04) mg/dL Estimated GFR > 60 (>60) mL/min BUN/Creatinine Ratio 18.6 (6-22) Glucose 101 H (70-100) mg/dL Calcium 9.2 (8.4-10.2) mg/dL Magnesium 1.8 (1.6-2.3) mg/dL Total Bilirubin 0.5 (0.2-1.3) mg/dL AST 20 (14-36) IU/L ALT 15 (<35) IU/L Alkaline Phosphatase 123 (38-126) U/L Total Creatine Kinase 81 (30-135) U/L Troponin I < 0.012 (0.01-0.034) ng/mL NT-Pro-B Natriuret Pep 22 (<125) pg/mL Total Protein 7.7 (6.3-8.2) g/dL Albumin 4.4 (3.5-5.0) g/dL Globulin 3.3 (1.7-4.1) g/dL Albumin/Globulin Ratio 1.3 (1.0-2.8) Lipase 65 (23-300) U/L TSH 0.66 (0.47-4.68) uIU/mL Point of Care Testing Test Results Negative Urine Dip Bedside Urine Glucose Negative Bedside Urine Bilirubin - Negative Bedside Urine Ketone - Negative Urine Specific [place] 1.015 Bedside Urine Occult Blood - Negative Bedside Urine pH 5.5 Bedside Urine Protein - Negative Bedside Urine Urobilinogen - Negative Bedside Urine Nitrite - Negative Bedside Urine Leukocytes - Negative Esterase Imaging Data Chest x-ray: Radiologist's Impresson: PROCEDURE: XR CHEST 1V INDICATIONS: chest pain TECHNIQUE: One view of the chest was acquired. COMPARISON: None. FINDINGS: Surgical changes and devices: None. Lungs and pleura: Lungs are clear. No pleural effusions or pneumothorax. Mediastinum: Mediastinal contours appear normal. Heart size is normal. Bones and chest wall: No suspicious bony lesions. Overlying soft tissues appear unremarkable. IMPRESSION: No acute cardiopulmonary abnormality is seen. Approved by: Grant Boss M.D. on 11/19/2023 at 13:03 ECG Data Attestation: I personally reviewed and interpreted this ECG as follows: Interpretation: Sinus rhythm rate 73 OH interval 168 QRS 82 QTC 409 no changes no PVC MDM Narrative Medical decision making narrative: MDM CC: Palpitations Complicating co-morbidities: Mirena IUD Medical records reviewed: Previous visits for OB Differential considered: Arrhythmia PVCs Exam documented above, pertinent findings include: Alert well-appearing 23-year-old female PVCs occasionally noted on monitor Lab Test results independently reviewed as above. Pertinent findings: CBC no leukocytosis or anemia CMP electrolytes stable no SUBHASH Troponin negative Independently reviewed EKG as above sinus rhythm no ischemia Imaging studies independently reviewed: No acute cardiopulmonary process Consultations: None Treatments: None Re-evaluations: Well-appearing female PVC noted on the monitor Discussion: Patient 23-year-old female presenting today with palpitations and near syncopal episode. She did not pass out she has occasional PVCs on the monitor. Blood work is overall reassuring. Chest x-ray reassuring. She does have a Mirena IUD with a PERC score of 1 however she has not having signs or consistent with PE. He overall appears well. She has not dizzy lightheaded she has no focal deficits. At this supportive care outpatient follow-up Discharge Plan Departure Patient Disposition: Home Clinical Impression: PVC (premature ventricular contraction) Instructions: Premature Ventricular Beats Activity Restrictions/Additional Instructions: *You have been diagnosed with PVCs *What to do: At this time I recommend ZIO patch please follow-up with the primary care provider *Continue to take medications as directed *Follow up with your primary care provider in 2-3 days or call [phone] *Return to ER if you should have increasing palpitations passing or any new, worsening or concerning symptoms Prescriptions: No Action [id number] oil 400 mcg-35 mg -25 mg-5 mg tablet,chewable PO acetaminophen 325 mg Tablet 650 mg PO Q6HR PRN (Reason: Pain, Mild (1-3)) Qty: 30 0RF ferrous sulfate 325 mg (65 mg iron) Tablet 325 mg PO DAILY Qty: 30 0RF docusate sodium 100 mg Capsule 100 mg PO DAILY Qty: 30 0RF ibuprofen 600 mg Tablet 600 mg PO Q6HR PRN (Reason: Pain, Mild (1-3)) Qty: 60 0RF Mirena 21 mcg/24 hours (8 yrs) 52 mg Intrauterine Device INTRAUTERINE cyclobenzaprine 10 mg tablet 10 mg PO TID PRN (Reason: muscle spasm) Qty: 30 0RF Referrals: Lilo Fink ARNP [Primary Care Provider] - Stand Alone Forms: Patient Portal/API
[2023-11-19 14:42] VITALS: BP 119/59; PULSE 87; RESP 20; O2SAT 98
== END 2023-11-19 14:44 | disposition home or self-care (01) ==
PROVIDERS: Emergency Provider Emergency Medicine; Family Provider Pediatrics; PCP Nurse Practitioner
DX: I49.3 Ventricular premature depolarization (principal); R55 Syncope and collapse; R07.9 Chest pain, unspecified
CPT/HCPCS: 36415; 71045; 80053; 81003; 81025; 82550; 83690; 83735; 83880; 84443; 84484; 85025; 85610; 85730; 93005; 93010; 99283; 99284

== ENCOUNTER → 2024-10-22 13:29 | Outpatient (CLI) | payer BC, SELFPAY ==
[2024-10-22 14:08] LABS: Add Manual Diff / Slide Review NO; Hematocrit 39.2 % (36-46); Hemoglobin 12.9 g/dL (12.0-16.0); Lymphocytes Absolute Auto 1900 /uL (1100-4500); Mean Corpuscular HGB Conc 32.9 % (30-36); Mean Corpuscular Hemoglobin 26.9 PG (26-34); Mean Corpuscular Volume 81.8 fL (80-100); Platelet Count 379 X10^3/uL (150-400)
[2024-10-22 14:16] LABS: Hemoglobin A1C% w Est Avg Glu 5.2 % (4.0-6.0)
[2024-10-22 14:32] LABS: Natera Collection Specimen Collected
[2024-10-22 14:59] LABS: Hepatitis B Surface Antigen NEGATIVE s/c (NEGATIVE)
[2024-10-22 15:10] LABS: HIV 1 & 2 Ab/Ag 4th Gen Combo NEGATIVE (NEGATIVE); Hep C Virus Ab w/Reflex Quant NEGATIVE s/c (NEGATIVE)
== END ==
PROVIDERS: Referring Provider Family Medicine; Visit Provider Family Medicine
DX: Z34.80 Encounter for supervision of other normal pregnancy, unspecified trimester (principal); E66.01 Morbid (severe) obesity due to excess calories
CPT/HCPCS: 36415; 80055; 83036; 86787; 86803; 86850; 86900; 86901; 87389

== ENCOUNTER → 2024-12-06 13:31 | Outpatient (CLI) | payer SELFPAY ==
--- NOTE | 2024-12-06 13:33 | DI.US.S_ITS ---
PROCEDURE: US OB >= 14 WEEKS FETUS INDICATIONS: anatomy OUTSIDE/PRIOR DATING DATA: Last menstrual period (LMP): 07/26/2024 LMP-based estimated date of delivery (GURPREET): 05/02/2025 First dating scan (date and location): 09/23/2024 Estimated date of delivery (GURPREET) from first dating scan: 05/04/2025 The calculations are made using the working GURPREET of 05/02/2025. TECHNIQUE: Real-time scanning was performed of the fetus, with image documentation and biometric measurements. Endovaginal scanning: Not performed. COMPARISON: [facility], OB >= 14 WEEKS FETUS, 01/18/2023, 15:06. FINDINGS: General: A single living intrauterine gestation is present. Presentation: Breech Placenta: Placental position is posterior, without previa. Amniotic fluid index: 12.9 cm, normal range is 5-24 cm. Single deepest vertical pocket is 3.8 cm. heart rate: 163 beats per minute. Maternal cervical canal: Closed and measures 6.6 cm long. Normal lower limit is 2.5 cm. biometrics: Biparietal diameter: 4.3 cm, 19 weeks, 0 day. Head circumference: 16.3 cm, 19 weeks, 0 day. Abdominal circumference: 14.8 cm, 20 weeks, 0 day. Femur length: 3.0 cm, 19 weeks, 1 day. Clinically estimated gestational age: 19 weeks, 0 day. Composite gestational age from present scan: 19 weeks, 2 days. Estimated weight and percentile: 299 g, 78%. Anatomic survey: Neuro: Ventricles are non-dilated at less than 10 mm. Cisterna magna is normal at 3-11 mm. Cerebellum is normal in size and morphology. Nuchal skin fold: Normal at less than 6 mm between 14-21 weeks gestational age. Face: Nose and lips, facial profile are normal. Spine: No evidence for spina bifida. Heart: Not well seen due to position. Diaphragm: Diaphragm is intact. Stomach: Left-sided stomach is present. Kidneys: No hydronephrosis. Normal is less than 5 mm in 2nd trimester, less than 7 mm in 3rd trimester. Cord: 3-vessel cord has orthotopic insertion. Bladder: Normal in size. Extremities: All 4 extremities identified. IMPRESSION: 1. Single live intrauterine gestation with fetus in breech presentation. heart rate is 163 beats per minute. Normal LILA at 12.9 cm. 2. Normal growth. Estimated weight is at 78%. 3. cardiac structures are not well seen due to position and patient's body habitus. Rest of the anatomic survey is normal. We strive to produce accurate, complete, and clear reports of imaging services. To assist us in improving patient care, this report was composed using standard report templates and voice recognition software. Therefore, it may contain abnormal punctuation, insertions and/or omissions. Occasional wrong-word or sound-alike substitutions may occur. Though we review the report and make efforts to correct it, we do recommend that the report be read carefully in proper context to recognize any text inaccuracies. Dictated by: Milton Peace M.D. on 12/06/2024 at 15:44 Approved by: Milton Peace M.D. on 12/06/2024 at 15:57
== END ==
LOC: US 13:32
PROVIDERS: Referring Provider Family Medicine; Visit Provider Family Medicine
DX: Z34.82 Encounter for supervision of other normal pregnancy, second trimester (principal); Z3A.19 19 weeks gestation of pregnancy
CPT/HCPCS: 76811

== ENCOUNTER → 2024-12-23 14:48 | Outpatient (CLI) | payer SELFPAY ==
--- NOTE | 2024-12-23 14:49 | DI.US.S_ITS ---
PROCEDURE: US OB FOLLOW UP
== END ==
LOC: US 14:48
PROVIDERS: PCP Family Medicine; Referring Provider Family Medicine; Visit Provider Family Medicine
DX: Z34.82 Encounter for supervision of other normal pregnancy, second trimester (principal); Z3A.21 21 weeks gestation of pregnancy
CPT/HCPCS: 76816

== ENCOUNTER → 2025-02-11 12:42 | Outpatient (CLI) | payer OTHER, SELFPAY ==
[2025-02-11 13:13] LABS: Appearance Urine UA CLEAR; Bilirubin Urine UA NEGATIVE (NEGATIVE); Color Urine UA YELLOW; Glucose Urine UA NEGATIVE (Negative); Ketones Urine UA 1+ (NEGATIVE); Leukocyte Esterase Urine UA TRACE (NEGATIVE); Nitrite Urine UA NEGATIVE (Negative); Occult Blood Urine UA NEGATIVE (Negative); Protein Urine UA TRACE (Negative); Specific Gravity Urine UA 1.020 (1.000-1.035); Urobilinogen Urine UA 1.0 E.U./dL (0.2)
[2025-02-11 13:15] LABS: pH Urine UA 5.5 (4.5-8.0)
[2025-02-11 14:21] LABS: Hematocrit 32.6 % (36-46); Hemoglobin 11.1 g/dL (12.0-16.0)
[2025-02-11 14:36] LABS: Urine Chlamydia NOT DETECTED; Urine N gonorrhoeae NOT DETECTED
[2025-02-11 14:43] LABS: GTT (PREG) 1 Hour PP 50gm Dose 173 mg/dL (76-139)
== END ==
PROVIDERS: PCP Family Medicine; Referring Provider Family Medicine; Visit Provider Family Medicine
DX: Z34.01 Encounter for supervision of normal first pregnancy, first trimester (principal)
CPT/HCPCS: 36415; 81003; 81015; 82950; 85014; 85018; 87086; 87491; 87591